=== PATIENT | female | born 1980 | race Caucasian/White ===

== ENCOUNTER 2016-04-19 10:31 | Day surgery (SDC) | payer OTHER ==
[~2016-04-19 10:31] MED LIST: CEFAZOLIN 2 GM/D5W RTU 2 GM/50 ML RTUPB IV PRN
[2016-04-19] MEDS ORDERED: LIDOCAINE 2% INJ-PF (20 MG/ML) 10 ML AMPUL ONE (11:00)
[2016-04-19] MEDS ORDERED: ONDANSETRON HCL INJ/PF 4 MG/2 ML SDV ONE (11:00)
[2016-04-19] MEDS ORDERED: SUCCINYLCHOLINE CHLORIDE INJ 200 MG/10 ML VIAL ONE (11:00)
[2016-04-19] MEDS ORDERED: METOCLOPRAMIDE HCL INJ/PF 10 MG/2 ML SDV ONE (11:00)
[2016-04-19] MEDS ORDERED: ROCURONIUM BROMIDE INJ 50 MG/5 ML VIAL IV ONE (11:00)
[2016-04-19] MEDS ORDERED: GLYCOPYRROLATE INJ 0.4 MG/2 ML VIAL ONE (11:00)
[2016-04-19] MEDS ORDERED: NEOSTIGMINE METHYLSULFATE 10 MG/10 ML VIAL ONE (11:00)
[2016-04-19 11:29] LABS: HEMATOCRIT 37.7 % (36.0-47.0); HGB HCT DIFFERENCE 1.3; MEAN CORPUSCULAR HEMOGLOBIN 29.1 pg (27.0-33.4); MEAN CORPUSCULAR HGB CONC 34.4 g/dL (32.0-36.0); MEAN CORPUSCULAR VOLUME 85 fl (80-97); RED BLOOD COUNT 4.45 10^6/uL (3.72-5.28); RED CELL DISTRIBUTION WIDTH 14.9 % (11.5-14.0); WHITE BLOOD COUNT 8.7 10^3/uL (4.0-10.5)
[2016-04-19 11:48] LABS: ANION GAP 9 (5-19); BLOOD UREA NITROGEN 9 mg/dL (7-20); CALCIUM 9.3 mg/dL (8.4-10.2); CARBON DIOXIDE 25 mmol/L (22-30); CHLORIDE 105 mmol/L (98-107); CREATININE RESULT 0.55 mg/dL (0.52-1.25); GLUCOSE 102 mg/dL (75-110); POTASSIUM 3.7 mmol/L (3.6-5.0); SODIUM 139.1 mmol/L (137-145)
[2016-04-19] MEDS ORDERED: HYDROMORPHONE HCL INJ/PF 2 MG/ML AMPULE IV ONE (12:30)
[2016-04-19] MEDS ORDERED: BUPIVACAINE HCL 0.5 % INJ/PF 30 ML SDV ONE (13:44)
[2016-04-19] MEDS ORDERED: FENTANYL CITRATE INJ/PF 100 MCG/2 ML AMPUL ONE (13:56)
[2016-04-19] MEDS ORDERED: PROPOFOL INJ 200 MG/20 ML VIAL IV ONE (13:57)
[2016-04-19] MEDS ORDERED: DEXMEDETOMIDINE INJ 80 MCG/20 ML VIAL IV ONE (13:57)
[2016-04-19] MEDS ORDERED: MORPHINE SULFATE 10 MG/ML INJ ONE ×2 (14:35→16:47)
[2016-04-19] MEDS ORDERED: ACETAMINOPHEN 0 ML IV ONE (14:35)
[2016-04-19] MEDS ORDERED: FENTANYL CITRATE INJ/PF 100 MCG/2 ML AMPUL IV PRN ×3 (16:18)
[2016-04-19] MEDS ORDERED: MEPERIDINE HCL/PF INJ 25 MG/1 ML DISP.SYRIN IV PRN (16:18)
[2016-04-19] MEDS ORDERED: PROMETHAZINE HCL INJ 25 MG/1 ML VIAL IV PRN ×2 (16:18)
[2016-04-19] MEDS ORDERED: OXYCODONE-ACETAMINOPHEN 5-325 MG TABLET PO PRN ×3 (16:18→17:36)
[2016-04-19] MEDS ORDERED: DIPHENHYDRAMINE HCL 50 MG/ML VIAL IV PRN (16:18)
[2016-04-19] MEDS ORDERED: MORPHINE SULFATE 10 MG/ML INJ IV PRN (16:18)
[2016-04-19] MEDS ORDERED: ACETAMINOPHEN 100 ML IV ONE (17:29)
--- NOTE | 2016-04-19 17:33 | Operative Report ---
Operative Report DATE OF SURGERY: 04/19/16 PREOPERATIVE DIAGNOSIS: Refracture Left Patella POSTOPERATIVE DIAGNOSIS: Same OPERATION: Revision ORIF Left Patella SURGEON: ADDY STANFORD ANESTHESIA: GA COMPLICATIONS: None ESTIMATED BLOOD LOSS: Minimal PROCEDURE: Indication for above procedure: 35-year-old female who sustained a patellar fracture back in January 2016. She had been doing better initially according to her who began having pain in the past month or so. She notes pain along the anterior aspect of the knee and sustaining a fall recently. Radiographs at the office today demonstrated refracture of the patella. At that point we discussed treatment options including nonoperative treatment versus operative intervention. Risks and benefits were explained patient verbalized understanding consented for the procedure. Patient's preoperative hCG was positive and we discussed the complications of general anesthesia in this situation but given her refracture the decision was made to proceed with operative treatment knowing the risks. Procedure In Detail: Patient was seen and evaluated in the preoperative holding area. The LEFT lower extremity was initialized and marked. Patient received 2g of Ancef IV for bacterial prophylaxis. Patient was taken back to the operative room where transferred to the operative table and placed under general anesthesia. Once they were adequately anesthetized a nonsterile tourniquet was placed on the lower extremity. A surgical team debriefing was performed ensuring all instrumentation was available, the surgical procedure was discussed with possible concerns reviewed. The upper extremity was prepped with chloraprep and draped in a sterile fashion. A timeout was done identifying correct patient, procedure and extremity everyone in attendance agree with this and verbalized no concerns. The extremity was exsanguinated the tourniquet was inflated to 300 mmHg. Patient's previous skin incision was utilized longitudinally. Dissection was done through the fascia approaching the capsule of the knee. A mid vastus approach was then utilized to inspect the articular surface. There was some mild diastases of the articular surface however gross instability of the fracture was not appreciated. There was fibrous tissue along the anterior aspect of the knee. Given the diastases and patient's pain the decision was made to proceed with takedown of partial union and revise the articular diastases. Utilizing a osteotome the fracture site was opened. A rongeur was used to freshen the fracture ends proximally and distally until good bleeding bone was visualized. There was some mild comminution along the lateral aspect of the articular surface of the patella which was removed. Under direct visualization and with palpable cues to anatomically reduce the articular surface there was no palpable evidence of step-off. C-arm fluoroscopy demonstrated acceptable reduction however there was evidence of step-off likely at the level of the lateral comminution. But given the fact I had excellent articular reduction on direct visualization and palpation I felt reduction was acceptable after multiple attempts to achieve anatomic fluoroscopic reduction. The reduction was held with a large tenaculum. 0.62 K wires were laced perpendicular to the fracture. I then used 18-gauge wire and placed it in a [id number] type fashion. It was passed below the wires proximally and distally with a Angiocath needle. I then tensioned my [id number]-at-[id number] construct until I got optimal compression. The K wires were then bent proximally to secure the wire and then tamped. The wire ends were then cut at the level of the patellar tendon to avoid postoperative irritation. Knee range of motion was 0/60 without diastases. Final C-arm fluoroscopy was obtained demonstrating acceptable alignment of the patella with adequate fixation. The wound was then copiously irrigated with normal saline. The capsule was closed with interrupted 0 Vicryl suture. Subcutaneous tissues were closed with 2-0 Vicryl suture. Skin was closed with ashtyn. 30 mL of 0.5% Marcaine without epinephrine was injected for postoperative pain control. Wound was dressed with OpSite, soft roll and Ramírez bandage. Patient was placed in her knee immobilizer. Postoperative plan: Patient may be partial weightbearing with crutches in the knee immobilizer when not begin knee range of motion until 4 weeks postoperatively. I stressed the importance of tobacco cessation and its negative effects on bone healing and overall health. Patient will be started on enteric-coated aspirin 325 mg daily for deep.
[2016-04-19] MEDS: FENTANYL CITRATE INJ/PF 100 MCG/2 ML AMPUL ONE ×2 (17:35→17:40)
[2016-04-19] MEDS ORDERED: ONDANSETRON HCL INJ/PF 4 MG/2 ML SDV IV PRN (17:36)
[2016-04-19] MEDS ORDERED: HYDROMORPHONE HCL INJ/PF 2 MG/ML AMPULE IV PRN (17:36)
[2016-04-19] MEDS ORDERED: HYDROMORPHONE HCL INJ/PF 2 MG/ML AMPULE ONE (17:40)
[2016-04-19] MEDS ORDERED: OXYCODONE-ACETAMINOPHEN 5-325 MG TABLET ONE (18:21)
[2016-04-19 19:37] VITALS: BP 120/80
== END 2016-04-19 19:30 | disposition home or self-care (01) ==
LOC: OROUT 10:31
PROVIDERS: ATTEND Orthopaedic Surgery
PROC: 0QSF04Z Reposition Left Patella with Internal Fixation Device, Open Approach (ICD-10-PCS; principal; 2016-04-19 13:00)
DX: S82.001K Unspecified fracture of right patella, subsequent encounter for closed fracture with nonunion (principal); W19.XXXD Unspecified fall, subsequent encounter; Z91.81 History of falling; M25.562 Pain in left knee; F17.210 Nicotine dependence, cigarettes, uncomplicated; Z88.6 Allergy status to analgesic agent
CPT/HCPCS: 36415; 85027; 81025; 80048; 73560; 27524; J3490 ×3; J3010; J2765; J2270; J1170; J0330; J2405; J2704; J0690; J0131; 01392

== ENCOUNTER → 2016-05-11 | Outpatient (CLI) | payer OTHER | LOC: SP 15:37 | PROVIDERS: ATTEND Orthopaedic Surgery | DX: M25.562 Pain in left knee (principal) | CPT/HCPCS: 93971 ==

== ENCOUNTER 2016-05-26 14:48 | Emergency (ER) | payer OTHER ==
[2016-05-26 15:24] VITALS: BP 133/88
--- NOTE | 2016-05-26 15:46 | ER Document Report ---
ED Medical Screen (RME) - General Chief Complaint: OB Trauma Stated Complaint: ABDOMINAL PAIN/NAUSEA/CHILLS Notes: 35-year-old female comes emergency room complaining of abdominal pain, hurting all over. With strong for methadone. Has been taking 140 mg a day, last dose was Monday 5 days ago. Had an hCG level 239 on 03/09/2016. She has been receiving her methadone from a clinic in [place]. I have greeted and performed a rapid initial assessment of this patient. A comprehensive ED assessment and evaluation of the patient, analysis of test results and completion of the medical decision making process will be conducted by additional ED providers. TRAVEL OUTSIDE OF THE [place] IN LAST 30 DAYS: No - Related Data Allergies/Adverse Reactions: ibuprofen [From Motrin] Allergy (Verified 05/26/16 15:40) NSAIDS (Non-Steroidal Anti-Inflamma [Nsaids] Allergy (Verified 05/26/16 15:40) aspirin [Aspirin] Adverse Reaction (Verified 05/26/16 15:40) Past Medical History - Past Medical History Cardiac Medical History: Denies: Hx Coronary Artery Disease, Hx Heart Attack, Hx Hypertension Pulmonary Medical History: Denies: Hx Asthma, Hx Bronchitis, Hx COPD, Hx Pneumonia Neurological Medical History: Denies: Hx Cerebrovascular Accident, Hx Seizures Renal/ Medical History: Denies: Hx Peritoneal Dialysis Musculoskeltal Medical History: Reports Hx Arthritis, Reports Hx Fibromyalgia, Reports Hx Musculoskeletal Trauma - Patella fracture Psychiatric Medical History: Reports: Hx Anxiety, Hx Bipolar Disorder, Hx Depression, Hx Post Traumatic Stress Disorder Traumatic Medical History: Reports: Hx Fractures - Patella left Past Surgical History: Reports: Hx Section, Hx Genitourinary Surgery - Urethral stretching - Immunizations Immunizations up to date: No Hx Diphtheria, Pertussis, Tetanus Vaccination: Yes Physical Exam - Vital signs Vitals: Temp Pulse Resp BP Pulse Ox 98.4 F 76 20 133/88 H 100 05/26/16 15:18 05/26/16 15:18 05/26/16 15:18 05/26/16 15:18 05/26/16 15:18 Course - Vital Signs Vital signs: Temp Pulse Resp BP Pulse Ox 98.4 F 76 20 133/88 H 100 05/26/16 15:18 05/26/16 15:18 05/26/16 15:18 05/26/16 15:18 05/26/16 15:18
[2016-05-26 16:21] LABS: ABSOLUTE EOSINOPHILS # (AUTO) 0.1 10^3/uL (0.0-0.6); ABSOLUTE LYMPHOCYTES (AUTO) 3.4 10^3/uL (0.5-4.7); ABSOLUTE MONOCYTES (AUTO) 0.5 10^3/uL (0.1-1.4); ABSOLUTE NEUT (AUTO) 3.6 10^3/uL (1.7-8.2); BASOPHILS % (AUTO) 0.6 % (0-2); EOSINOPHILS % (AUTO) 0.9 % (0-6); HEMATOCRIT 39.3 % (36.0-47.0); HEMOGLOBIN 13.7 g/dL (12.0-15.5); HGB HCT DIFFERENCE 1.8; LYMPHOCYTES % (AUTO) 44.7 % (13-45); MEAN CORPUSCULAR HEMOGLOBIN 28.7 pg (27.0-33.4); MEAN CORPUSCULAR HGB CONC 34.8 g/dL (32.0-36.0); MEAN CORPUSCULAR VOLUME 82 fl (80-97); MONOCYTES % (AUTO) 6.6 % (3-13); RED BLOOD COUNT 4.78 10^6/uL (3.72-5.28); RED CELL DISTRIBUTION WIDTH 15.8 % (11.5-14.0); SEGMENTED NEUTROPHILS % (AUTO) 47.2 % (42-78); WHITE BLOOD COUNT 7.7 10^3/uL (4.0-10.5)
[2016-05-26 16:25] LABS: APPEARANCE,URINE CLEAR; BILIRUBIN,URINE NEGATIVE (NEGATIVE); GLUCOSE, URINE NEGATIVE (NEGATIVE); KETONES,URINE NEGATIVE (NEGATIVE); LEUKOCYTE ESTERASE,URINE NEGATIVE (NEGATIVE); NITRITE,URINE NEGATIVE (NEGATIVE); PROTEIN,URINE NEGATIVE (NEGATIVE); URINE SPECIFIC GRAVITY 1.006; UROBILINOGEN,URINE NEGATIVE mg/dL (<2.0)
[2016-05-26 16:43] LABS: ALANINE AMINOTRANSFERASE 20 U/L (9-52); ALBUMIN 4.6 g/dL (3.5-5.0); ALKALINE PHOSPHATASE 89 U/L (38-126); ANION GAP 15 (5-19); ASPARTATE AMINO TRANSFERASE 29 U/L (14-36); BILIRUBIN,DIRECT 0.4 mg/dL (0.0-0.4); BILIRUBIN,TOTAL 0.5 mg/dL (0.2-1.3); BLOOD UREA NITROGEN 7 mg/dL (7-20); CALCIUM 9.8 mg/dL (8.4-10.2); CARBON DIOXIDE 26 mmol/L (22-30); CHLORIDE 103 mmol/L (98-107); GLUCOSE 89 mg/dL (75-110); POTASSIUM 4.4 mmol/L (3.6-5.0); SODIUM 143.6 mmol/L (137-145); TOTAL PROTEIN 8.4 g/dL (6.3-8.2)
--- NOTE | 2016-05-26 18:23 | ER Document Report ---
ED General - General Chief Complaint: OB Trauma Stated Complaint: ABDOMINAL PAIN/NAUSEA/CHILLS Time seen by provider: 18:18 Mode of Arrival: Ambulatory Information source: Patient TRAVEL OUTSIDE OF THE [place] IN LAST 30 DAYS: No - Related Data Allergies/Adverse Reactions: ibuprofen [From Motrin] Allergy (Verified 05/26/16 15:40) NSAIDS (Non-Steroidal Anti-Inflamma [Nsaids] Allergy (Verified 05/26/16 15:40) aspirin [Aspirin] Adverse Reaction (Verified 05/26/16 15:40) Past Medical History - Social History Smoking Status: Current Every Day Smoker Chew tobacco use (# tins/day): No Frequency of alcohol use: None Drug Abuse: Marijuana Family History: Arthritis, Malignancy, COPD, CVA, Hypertension, Reviewed & Not Pertinent Patient has suicidal ideation: No Patient has homicidal ideation: No - Past Medical History Cardiac Medical History: Denies: Hx Coronary Artery Disease, Hx Heart Attack, Hx Hypertension Pulmonary Medical History: Denies: Hx Asthma, Hx Bronchitis, Hx COPD, Hx Pneumonia Neurological Medical History: Denies: Hx Cerebrovascular Accident, Hx Seizures Renal/ Medical History: Denies: Hx Peritoneal Dialysis Musculoskeltal Medical History: Reports Hx Arthritis, Reports Hx Fibromyalgia, Reports Hx Musculoskeletal Trauma - Patella fracture Psychiatric Medical History: Reports: Hx Anxiety, Hx Bipolar Disorder, Hx Depression, Hx Post Traumatic Stress Disorder Traumatic Medical History: Reports: Hx Fractures - Patella left Past Surgical History: Reports: Hx Section, Hx Genitourinary Surgery - Urethral stretching, Hx Orthopedic Surgery - L knee x2 - Immunizations Immunizations up to date: No Hx Diphtheria, Pertussis, Tetanus Vaccination: Yes Physical Exam - Vital signs Vitals: Temp Pulse Resp BP Pulse Ox 98.4 F 76 20 133/88 H 100 05/26/16 15:18 05/26/16 15:18 05/26/16 15:18 05/26/16 15:18 05/26/16 15:18 Course - Re-evaluation Re-evalutation: 05/26/16 18:29 Discussed labs with patient discussed the chronic pain policy with patient explained that I cannot give her narcotics for her withdrawal from methadone. Patient had a knee surgery a month ago I explained to her that I could not give her narcotics for a surgery a month ago. A copy of her lab reports given to patient and a prescription for Phenergan given to the patient. - Vital Signs Vital signs: Temp Pulse Resp BP Pulse Ox 98.4 F 76 20 133/88 H 100 05/26/16 15:18 05/26/16 15:18 05/26/16 15:18 05/26/16 15:18 05/26/16 15:18 - Laboratory Result Diagrams: 05/26/16 16:03 05/26/16 16:03 Laboratory results interpreted by me: 05/26/16 05/26/16 05/26/16 16:03 16:03 16:03 RDW 15.8 H Total Protein 8.4 H Urine Blood MODERATE H Discharge - Discharge Clinical Impression: Abdominal pain Qualifiers: Abdominal location: generalized Qualified Code(s): R10.84 - Generalized abdominal pain Nausea & vomiting Qualifiers: Vomiting type: unspecified Vomiting Intractability: non-intractable Qualified Code(s): R11.2 - Nausea with vomiting, unspecified Condition: Stable Disposition: HOME, SELF-CARE Instructions: Family Physicians / Practices Additional Instructions: ABDOMINAL PAIN: There are many causes of abdominal pain. Pain can mean a serious problem requiring surgery (such as appendicitis). It can also be an innocent problem that goes away on its own (such as a viral infection). Often, time must pass to determine the cause of pain. The physician does not feel that hospitalization is necessary, at present. Things may change within the next 24 hours. Call the doctor or come back for re- examination if any problems occur, such as: (1) Pain that becomes more severe, steady, or becomes concentrated in one specific area. Also, pain that is more severe with movement or coughing. (2) Vomiting that persists or becomes more frequent. (3) Blood in the vomitus, urine, or bowel movements. Blood in the stool may have a tarry or black appearance. (4) Shaking chills or fever greater than 100 degrees F. (5) The abdomen becomes more distended or swollen. (6) Bowel movements cease. (7) Failure to improve as expected. VOMITING: Vomiting (or nausea without vomiting) can be caused by many other different problems. It can mean that something's wrong with the stomach, such as ulcers or inflammation or the intestinal tract, such as appendicitis. But it can also be a symptom of a problem that has nothing to do with the stomach or intestines. Vomiting is common with severe headaches, earaches, tonsillitis, and kidney infections, etc. We see it with pneumonia or heart attacks. Drugs can cause nausea and vomiting. Many abdominal problems cause vomiting; for example, gallstones, kidney stones, pancreatitis, and intestinal obstruction ( blocked bowels). In most cases, curing the vomiting depends on fixing the problem that caused it. For temporary relief, we may use an anti-nausea medicine. For home use, we can prescribe suppositories, chewable pills, pills that dissolve in the mouth, or liquid anti-nausea drugs. If the vomiting seems to be caused by a problem in the stomach, acid-suppressing drugs may be prescribed as well. It's important to avoid dehydration. Sip small amounts of clear liquids ( soft drinks, tea, broth, etc) . Try to take fluids frequently even if you are vomiting to prevent dehydration. Take increasing amounts of fluid and when liquids are being consumed successfully, advance to small amounts of bland food (toast, soups, mashed potatoes, etc.) until you are able to resume a regular diet. Avoid aspirin, tobacco, and alcohol. If the vomiting worsens, if the problem that's making you vomit worsens, or if there's evidence of bleeding in the stomach (such as black, tarry stool, or bloody or black vomit), you should return immediately. Also, return if abdominal pain worsens or becomes localized to one area or you develop high fever. Call your doctor if you aren't improved in 24 hours. ANTINAUSEA MEDICATION: You have been given a medication to suppress nausea and vomiting. This type of medication can be given as a shot, pill, or suppository. It will usually last for many hours. Pills and shots usually last six to eight hours. For the typical illness, only one or two doses of the medication may be necessary. Mild lightheadedness may occur. This type of medicine can cause drowsiness. Do not drive or operate dangerous machinery while under its influence. Do not mix with alcohol. See your doctor at once if you have muscle spasms or tightness, or uncontrollable motions (particularly of the neck, mouth, or jaw). Persistent vomiting or severe lightheadedness should also be evaluated by the physician. FOLLOW-UP CARE: If you have been referred to a physician for follow-up care, call the physician s office for an appointment as you were instructed or within the next two days. If you experience worsening or a significant change in your symptoms, notify the physician immediately or return to the Emergency Department at any time for re-evaluation. Prescriptions: Promethazine HCl [Phenergan 25 mg Tablet] 25 mg PO Q6H PRN #15 tablet PRN Reason: Forms: Elevated Blood Pressure, Smoking Cessation Education
== END 2016-05-26 18:31 | disposition home or self-care (01) ==
LOC: ER 14:48
DX: F11.23 Opioid dependence with withdrawal (principal); R10.84 Generalized abdominal pain; R11.2 Nausea with vomiting, unspecified; T40.2X5A Adverse effect of other opioids, initial encounter; F17.200 Nicotine dependence, unspecified, uncomplicated; Z88.6 Allergy status to analgesic agent; Z88.8 Allergy status to other drugs, medicaments and biological substances; Z98.890 Other specified postprocedural states
CPT/HCPCS: 36415; 76817; 80053; 81001; 84702; 85025; 99284

== ENCOUNTER 2016-07-19 14:00 | Day surgery (SDC) | payer MEDICAID, OTHER ==
[2016-06-30 11:02] LABS: ABSOLUTE BASOPHILS # (AUTO) 0.1 10^3/uL (0.0-0.2); ABSOLUTE EOSINOPHILS # (AUTO) 0.1 10^3/uL (0.0-0.6); ABSOLUTE MONOCYTES (AUTO) 0.8 10^3/uL (0.1-1.4); ABSOLUTE NEUT (AUTO) 10.8 10^3/uL (1.7-8.2); BASOPHILS % (AUTO) 0.6 % (0-2); EOSINOPHILS % (AUTO) 0.8 % (0-6); HEMOGLOBIN 13.3 g/dL (12.0-15.5); HGB HCT DIFFERENCE -0.1; LYMPHOCYTES % (AUTO) 29.6 % (13-45); MEAN CORPUSCULAR HEMOGLOBIN 28.3 pg (27.0-33.4); MEAN CORPUSCULAR HGB CONC 33.4 g/dL (32.0-36.0); MEAN CORPUSCULAR VOLUME 85 fl (80-97); MONOCYTES % (AUTO) 4.6 % (3-13); RED BLOOD COUNT 4.71 10^6/uL (3.72-5.28); RED CELL DISTRIBUTION WIDTH 17.5 % (11.5-14.0); SEGMENTED NEUTROPHILS % (AUTO) 64.4 % (42-78); WHITE BLOOD COUNT 16.8 10^3/uL (4.0-10.5)
[2016-06-30 11:09] LABS: APPEARANCE,URINE CLEAR; BILIRUBIN,URINE NEGATIVE (NEGATIVE); GLUCOSE, URINE NEGATIVE (NEGATIVE); KETONES,URINE NEGATIVE (NEGATIVE); LEUKOCYTE ESTERASE,URINE NEGATIVE (NEGATIVE); NITRITE,URINE NEGATIVE (NEGATIVE); PROTEIN,URINE NEGATIVE (NEGATIVE); URINE SPECIFIC GRAVITY 1.019; UROBILINOGEN,URINE NEGATIVE mg/dL (<2.0)
[2016-06-30 11:33] LABS: ANION GAP 10 (5-19); BLOOD UREA NITROGEN 14 mg/dL (7-20); CALCIUM 9.6 mg/dL (8.4-10.2); CARBON DIOXIDE 22 mmol/L (22-30); CHLORIDE 105 mmol/L (98-107); CREATININE RESULT 0.76 mg/dL (0.52-1.25); GLUCOSE 80 mg/dL (75-110); POTASSIUM 4.4 mmol/L (3.6-5.0); SODIUM 137.2 mmol/L (137-145)
--- NOTE | 2016-06-30 11:42 | RADIOLOGY REPORT (SQ) ---
EXAM DESCRIPTION: CHEST PA/LATERAL COMPLETED DATE/TIME: 06/30/2016 10:39 am REASON FOR STUDY: PRE OP COMPARISON: 05/21/2015 EXAM PARAMETERS: NUMBER OF VIEWS: two views TECHNIQUE: Digital Frontal and Lateral radiographic views of the chest acquired. RADIATION DOSE: NA LIMITATIONS: none FINDINGS: LUNGS AND PLEURA: No opacities, masses or pneumothorax. No pleural effusion. MEDIASTINUM AND HILAR STRUCTURES: No masses or contour abnormalities. HEART AND VASCULAR STRUCTURES: Heart normal size. No evidence for failure. BONES: No acute findings. HARDWARE: None in the chest. OTHER: No other significant finding. IMPRESSION: NO SIGNIFICANT RADIOGRAPHIC FINDING IN THE CHEST. TECHNICAL DOCUMENTATION: JOB ID: [id number] [employer]- All Rights Reserved
--- NOTE | 2016-06-30 18:42 | EKG REPORT ---
SEVERITY:- NORMAL ECG - SINUS RHYTHM : Confirmed by: Gary Dean MD 30-Jun-2016 18:41:07
[~2016-07-19 14:00] MED LIST changes: +BUPIVACAINE HCL 0.5 % INJ/PF 30 ML SDV ONE; +DEXAMETHASONE SOD PHOSPHATE INJ 4 MG/1 ML VIAL ONE; +GLYCOPYRROLATE INJ 0.4 MG/2 ML VIAL ONE; +LACTATED RINGERS 1000 ML IV PRN; +LIDOCAINE 0.5% INJ-PF (5 MG/ML) 50 ML SDV SUBCUT PRN; +LIDOCAINE 2% INJ-PF (20 MG/ML) 10 ML AMPUL ONE; +METOCLOPRAMIDE HCL INJ/PF 10 MG/2 ML SDV ONE; +NEOSTIGMINE METHYLSULFATE 10 MG/10 ML VIAL ONE; +ONDANSETRON HCL INJ/PF 4 MG/2 ML SDV ONE; +ROCURONIUM BROMIDE INJ 50 MG/5 ML VIAL IV ONE; +SUCCINYLCHOLINE CHLORIDE INJ 200 MG/10 ML VIAL ONE
[2016-07-19] MEDS ORDERED: BUPIVACAINE HCL 0.5 % INJ/PF 30 ML SDV ONE (14:45)
[2016-07-19] MEDS ORDERED: FENTANYL CITRATE INJ/PF 250 MCG/5 ML AMPULE ONE ×2 (15:09)
[2016-07-19] MEDS ORDERED: MIDAZOLAM 2 MG/2 ML INJ ONE (15:10)
[2016-07-19] MEDS ORDERED: PROPOFOL INJ 200 MG/20 ML VIAL IV ONE ×2 (15:10→15:12)
[2016-07-19] MEDS ORDERED: ACETAMINOPHEN 100 ML IV ONE (15:10)
[2016-07-19] MEDS ORDERED: MORPHINE SULFATE 10 MG/ML INJ ONE ×2 (15:11→17:24)
--- NOTE | 2016-07-19 15:43 | Progress Note ---
Provider Note Provider Note: Patient's hcG came back positive. We discussed the fact that she is and she is a high risk for termination of the when placed under general anesthesia. Patient understands these risks and given her fracture that is essentially making her nonambulatory and thus it is more urgent and likely cannot wait full-term . Patient verbalized understanding of surgical risk and risk.
[2016-07-19] MEDS ORDERED: OXYCODONE-ACETAMINOPHEN 5-325 MG TABLET PO PRN ×3 (16:30→18:05)
[2016-07-19] MEDS ORDERED: DIPHENHYDRAMINE HCL 50 MG/ML VIAL IV PRN (16:30)
[2016-07-19] MEDS ORDERED: MORPHINE SULFATE 10 MG/ML INJ IV PRN (16:30)
[2016-07-19] MEDS ORDERED: MEPERIDINE HCL/PF INJ 25 MG/1 ML DISP.SYRIN IV PRN (16:30)
[2016-07-19] MEDS ORDERED: FENTANYL CITRATE INJ/PF 100 MCG/2 ML AMPUL IV PRN ×3 (16:30)
[2016-07-19] MEDS ORDERED: PROMETHAZINE HCL INJ 25 MG/1 ML VIAL IV PRN ×2 (16:30)
[2016-07-19] MEDS ORDERED: HYDROMORPHONE HCL INJ/PF 2 MG/ML AMPULE IV PRN (18:05)
[2016-07-19] MEDS ORDERED: ONDANSETRON HCL INJ/PF 4 MG/2 ML SDV IV PRN (18:05)
--- NOTE | 2016-07-19 18:08 | PDOC DISCHARGE SUMMARY ---
Discharge Summary (SDC) - Discharge Final Diagnosis: Left Patella Fracture Date of Surgery: 07/19/16 Discharge Date: 07/19/16 Condition: Good Treatment or Instructions: Schedule Follow Up w/ Dr. Ki Carreon @ [facility] to be seen in 10-14 days or as scheduled [place]: [place]: [place]: Keep cast clean/dry/intact. Aggressive elevation Nonweightbearing Stool softener of choice when on pain medication. Prescriptions: Oxycodone HCl/Acetaminophen [Percocet 5-325 mg Tablet] 1 - 2 tab PO ASDIR PRN # 45 tablet PRN Reason: Discharge Diet: As Tolerated Respiratory Treatments at Home: Deep Breathing/Coughing Discharge Activity: No Lifting Over 10 Pounds, No Lifting/Push/Pulling Report the Following to Your Physician Immediately: Fever over 101 Degrees, Unusual Bleeding, Redness, Swelling, Warmth, Increased Soreness
--- NOTE | 2016-07-19 18:16 | Operative Report ---
Operative Report DATE OF SURGERY: 07/19/16 PREOPERATIVE DIAGNOSIS: Left Patella Fracture POSTOPERATIVE DIAGNOSIS: Same OPERATION: Revision ORIF Left Patella SURGEON: ADDY STANFROD ANESTHESIA: GA COMPLICATIONS: None ESTIMATED BLOOD LOSS: Minimal PROCEDURE: Indication for above procedure: 35-year-old female who sustained a patellar fracture back in January. She underwent open reduction internal fixation subsequently after this she sustained a reinjury and underwent revision ORIF. Unfortunately patient once again injured her left knee exact cause of the injury is unknown concerned secondary to her tremors that occur at night. We had discussed treatment options including operative versus nonoperative intervention. Patient understands since this is the third open reduction internal fixation is at high risk for refracture, infection and failure of hardware. If his third and final attempted fixation is not successful patient is looking at possible inferior pole resection versus patellectomy. Patient has verbalized understanding consented for the procedure. Procedure In Detail: Patient was seen and evaluated in the preoperative holding area. The left lower extremity was initialized and marked. Patient received 2g of Ancef IV for bacterial prophylaxis. Patient was taken back to the operative room where transferred to the operative table and placed under general anesthesia. Once they were adequately anesthetized a nonsterile tourniquet was placed on the lower extremity. A surgical team debriefing was performed ensuring all instrumentation was available, the surgical procedure was discussed with possible concerns reviewed. The lower extremity was prepped with ChloraPrep and draped in a sterile fashion. A timeout was done identifying correct patient, procedure and extremity everyone in attendance agree with this and verbalized no concerns. The extremity was exsanguinated the tourniquet was inflated to 300 mmHg. Previous longitudinal skin incision was sharp dissection was performed down to the patella. I was then able to isolate the fracture there is significant fibrous union of the fracture but no evidence of bone healing. The previous hardware was then removed. Utilizing a medial parapatellar approach I was able to directly visualize the articular surface. There is no evidence of chondral damage along the femoral trochlea. I then proceeded with preparation of the patella fracture ends. Prior to fixation I had to do significant debridement of the fibrous tissue down to good cancellus bone. I then freshened the edges of the articular surface of the superior patella to match the inferior patella. However given the amount of bone loss from her previous injuries there was a small defect was dilated with filled with autograft. I then reduced the fracture at the articular surface with an acceptable reduction. The reduction on C-arm however do not completely match the reduction on radiographs given patient had no evidence of articular step-off or diastases under direct visualization. This was then clamped to provide further compression. 2 threaded K wires were placed perpendicular to the fracture and two 4.0 partially threaded cannulated cancellus screws were placed providing good interfragmentary compression. 18- gauge wire was then fed to the cannulation forming a [id number]-av-osqrs construct. This was tightened along the superior lateral pole of the patella once again maintaining my interfragmentary compression. The wire was then cut and bent to avoid postoperative irritation and the clamp removed. This maintained my articular surface reduction there is no evidence of diastases of the fracture at the articular surface there was diastases along the anterior aspect which was filled with autograft that was obtained while freshening the edge of the superior and inferior poles. I then provided further fixation with a #5 FiberWire and a cerclage type fashion around the patella. A peripheral vasculature was coagulated with electrocautery. The wound was then copiously irrigated with normal saline. My medial parapatellar arthrotomy was closed with interrupted 0 Vicryl suture. Soft tissue was closed over the 18-gauge wire to avoid postoperative irritation. Wound was once again irrigated with saline. Subcutaneous tissues were closed with interrupted 2-0 Vicryl suture. Skin was closed with ashtyn. 30 cc of 0.5 % Marcaine without epinephrine was injected for postoperative pain control. Wound was dressed with Xeroform 4 x 4's and cast padding and tourniquet was deflated. There was minimal swelling or bleeding. Patient was then placed in a well-padded long leg cast with the knee in 20 of flexion. Extra padding was placed to allow for postoperative swelling. Sponge counts, instrument counts, needle counts counts were correct. Patient was then awoken from anesthesia. Transferred from the operating room table to the operating room stretcher. There was no intraoperative complications patient tolerated procedure well stable to PACU. Postoperative plan: Patient will follow in the office in 2 weeks. At that point we will obtain radiographs in the cast and consider continuing the cast for 4 weeks as long as there is no sign or symptoms of infection.
[2016-07-19] MEDS: FENTANYL CITRATE INJ/PF 100 MCG/2 ML AMPUL ONE ×2 (18:30→18:36)
--- NOTE | 2016-07-19 19:24 | RADIOLOGY REPORT (SQ) ---
EXAM DESCRIPTION: NO CHG FLUORO COMPLETE DATE/TIME: 07/19/2016 7:09 pm REASON FOR STUDY: ORIF LT PATELLA S82.001K UNSP FRACTURE OF RIGHT PATELLA, SUBS FOR CLOS FX W FINDINGS: Please see combined report for performance of procedure and radiologic supervision and int erpretation. IMPRESSION: Please see combined report for performance of procedure and radiologic supervision and i nterpretation.
--- NOTE | 2016-07-19 19:24 | RADIOLOGY REPORT (SQ) ---
EXAM DESCRIPTION: KNEE LEFT 2 VIEWS COMPLETED DATE/TIME: 07/19/2016 7:09 pm REASON FOR STUDY: ORIF LT PATELLA S82.001K UNSP FRACTURE OF RIGHT PATELLA, SUBS FOR CLOS FX W COMPARISON: None. FLUOROSCOPY TIME: 1.8 minutes 3 images saved to PACS. TECHNIQUE: Intra-operative images acquired during surgical procedure to evaluate progress. NUMBER OF IMAGES: 3 images LIMITATIONS: None. FINDINGS: Fluoroscopic images were obtained during internal fixation of a patellar fracture. IMPRESSION: IMAGE(S) OBTAINED DURING PROCEDURE. COMMENT: Quality ID [id number]: Final reports for procedures using fluoroscopy that document radiation exp osure indices, or exposure time and number of fluorographic images (if radiation exposure indices are not available) Please consult full operative report of the attending physician for description of the procedure. TECHNICAL DOCUMENTATION: JOB ID: [id number] [employer]- All Rights Reserved
[2016-07-19] MEDS ORDERED: OXYCODONE HCL SR 10 MG TABLET PO SCH (22:00)
[2016-07-19 22:07] VITALS: BP 111/62
== END 2016-07-19 22:53 | disposition home or self-care (01) ==
LOC: OROUT 14:00 → UNDOADMOB 19:33 → 2N 19:33 → OROUT 22:53 → UNDODISOB 22:53
PROVIDERS: ATTEND Orthopaedic Surgery
PROC: 0QSF04Z Reposition Left Patella with Internal Fixation Device, Open Approach (ICD-10-PCS; 2016-07-19)
PROC: 0QBF0ZZ Excision of Left Patella, Open Approach (ICD-10-PCS; principal; 2016-07-19 15:15)
DX: S82.002K Unspecified fracture of left patella, subsequent encounter for closed fracture with nonunion (principal); X58.XXXA Exposure to other specified factors, initial encounter; G25.2 Other specified forms of tremor; Z32.01 Encounter for pregnancy test, result positive; F17.210 Nicotine dependence, cigarettes, uncomplicated
CPT/HCPCS: 27524; 11044; 93005; 36415; 85025; 81025; 80048; 81001; 71020; 73560; 93010; C1769; J2250; J3490 ×2; J1100; J3010 ×2; J2765; J2270; J1170; J0330; J2405; J2704; J0690; J0131; 01392

== ENCOUNTER 2016-07-20 20:00 | Emergency (ER) | payer MEDICAID, OTHER ==
[2016-07-20 20:43] LABS: ABSOLUTE LYMPHOCYTES (AUTO) 4.7 10^3/uL (0.5-4.7); ABSOLUTE MONOCYTES (AUTO) 0.9 10^3/uL (0.1-1.4); ABSOLUTE NEUT (AUTO) 9.1 10^3/uL (1.7-8.2); BASOPHILS % (AUTO) 0.2 % (0-2); EOSINOPHILS % (AUTO) 0.2 % (0-6); HEMATOCRIT 37.4 % (36.0-47.0); HEMOGLOBIN 12.4 g/dL (12.0-15.5); HGB HCT DIFFERENCE -0.2; LYMPHOCYTES % (AUTO) 31.6 % (13-45); MEAN CORPUSCULAR HEMOGLOBIN 28.9 pg (27.0-33.4); MEAN CORPUSCULAR HGB CONC 33.2 g/dL (32.0-36.0); MEAN CORPUSCULAR VOLUME 87 fl (80-97); MONOCYTES % (AUTO) 6.1 % (3-13); RED BLOOD COUNT 4.29 10^6/uL (3.72-5.28); RED CELL DISTRIBUTION WIDTH 17.5 % (11.5-14.0); SEGMENTED NEUTROPHILS % (AUTO) 61.9 % (42-78); WHITE BLOOD COUNT 14.7 10^3/uL (4.0-10.5)
[2016-07-20] MEDS ORDERED: NORMAL SALINE 1000 ML 1,000 ML IV ONE (20:50)
[2016-07-20 20:52] LABS: VENOUS BLOOD BASE EXCESS 1.6 mmol/L; VENOUS BLOOD HCO3 24.9 mmol/L (20-32); VENOUS BLOOD PCO2 35.3 mmHg (35-63); VENOUS BLOOD PH 7.47 (7.30-7.42)
--- NOTE | 2016-07-20 20:59 | ER Document Report ---
ED General - General Chief Complaint: pain on inspiration Stated Complaint: PAINFUL BREATHING Time Seen by Provider: 07/20/16 20:23 Mode of Arrival: Medic Information source: Patient, [facility] Records Notes: This is a 35-year-old female who is postop day 1 status post revision of left patellar fracture. This was her third patella surgery. She was discharged last night. She states that she has had multiple symptoms today and has overall not felt well. She is concerned that her heart rate has been high (115 ) and she has had 2 episodes of vomiting today. She also reports a fever at home this morning of 101. She reports some shortness of breath earlier but currently denies any chest pain or shortness of breath. States that she found out yesterday just prior to her surgery that her test is positive. She opted to continue with the surgery despite the knowledge that general anesthesia posed great risk to the , because her symptoms had made her nonambulatory. TRAVEL OUTSIDE OF THE [place] IN LAST 30 DAYS: No - Related Data Allergies/Adverse Reactions: ibuprofen [From Motrin] Allergy (Verified 06/30/16 09:33) SHARP STOMACH PAIN NSAIDS (Non-Steroidal Anti-Inflamma [Nsaids] Allergy (Verified 06/30/16 09:33) aspirin [Aspirin] Adverse Reaction (Verified 06/30/16 09:33) SHARP STOMACH PAINS Past Medical History - General Information source: Patient, [facility] Records - Social History Smoking Status: Unknown if Ever Smoked Family History: Arthritis, Malignancy, COPD, CVA, Hypertension, Reviewed & Not Pertinent - Past Medical History Cardiac Medical History: Reports: Hx Hypertension Denies: Hx Coronary Artery Disease, Hx Heart Attack Pulmonary Medical History: Reports: Hx Bronchitis - EVERY COUPLE YEARS Denies: Hx Asthma, Hx COPD, Hx Pneumonia Neurological Medical History: Denies: Hx Cerebrovascular Accident, Hx Seizures Renal/ Medical History: Denies: Hx Peritoneal Dialysis Musculoskeltal Medical History: Reports Hx Arthritis - GENERALIZED ALL BODY, Reports Hx Fibromyalgia, Reports Hx Musculoskeletal Trauma - Patella fracture Psychiatric Medical History: Reports: Hx Anxiety, Hx Bipolar Disorder, Hx Depression, Hx Post Traumatic Stress Disorder Traumatic Medical History: Reports: Hx Fractures - Patella left Past Surgical History: Reports: Hx Section, Hx Genitourinary Surgery - Urethral stretching, Hx Orthopedic Surgery - L knee x2 - Immunizations Immunizations up to date: No Hx Diphtheria, Pertussis, Tetanus Vaccination: No Review of Systems - Review of Systems Constitutional: See HPI EENT: No symptoms reported Cardiovascular: See HPI Respiratory: See HPI Gastrointestinal: See HPI, Vomiting. denies: Abdominal pain Genitourinary: No symptoms reported Musculoskeletal: See HPI Skin: No symptoms reported Hematologic/Lymphatic: No symptoms reported Neurological/Psychological: No symptoms reported Physical Exam - Vital signs Vitals: Resp Pulse Ox 10 L 98 07/20/16 20:06 07/20/16 20:06 - General General appearance: Appears well In distress: None - HEENT Head: Normocephalic, Atraumatic Conjunctiva: Normal Cornea: Normal Pupils: PERRL Mucous membranes: Moist - Respiratory Respiratory status: No respiratory distress. No: Tachypnea Breath sounds: Normal. No: Productive cough, Rales, Rhonchi, Wheezing - Cardiovascular Rhythm: Regular, Tachycardia Heart sounds: Normal auscultation, S1 appreciated, S2 appreciated Murmur: No - Abdominal Inspection: Normal Distension: No distension Bowel sounds: Normal Tenderness: Nontender - Extremities Notes: LLE in long leg cast. Toes warm, pink, cap refill less than 3 seconds. No pain with movement of toes. - Neurological Neuro grossly intact: Yes Cognition: Normal Orientation: AAOx4 Course - Re-evaluation Re-evalutation: 07/20/16 23:20 Patient states that she is feeling better with IV fluids and she states that she thinks she was just dehydrated. She is asking for pain medication and states that she did not have the money to fill her pain prescription when she left the hospital yesterday. She states she has taken nothing for pain all day today. 07/21/16 00:11 Pt's tachycardia is resolved (HR 80's) after IV fluids and pain medication. No tachypnea, no hypoxia. I have a low clinical suspicion for PE at this point. Her potassium has been repleted and she is to call ortho clinic tomorrow for followup. Strict return precautions discussed. She is comfortable with this plan. 07/21/16 00:18 Pt states that she is afraid she may get an outbreak of genital herpes secondary to the amount of stress she's been under. Denies current lesions. Requests prescription for acyclovir to take in event of outbreak. - Vital Signs Vital signs: Temp Pulse Resp BP Pulse Ox 98.3 F 12 121/82 98 07/20/16 20:09 07/20/16 23:01 07/20/16 23:01 07/20/16 23:01 - Laboratory Result Diagrams: 07/20/16 20:30 07/20/16 23:50 Laboratory results interpreted by me: 07/20/16 07/20/16 07/20/16 20:30 20:30 20:30 WBC 14.7 H RDW 17.5 H Absolute Neutrophils 9.1 H VBG pH Potassium 2.7 L* Chloride BUN 5 L Glucose 111 H Serum HCG, Qual POSITIVE H Beta HCG, Quant Urine Blood 07/20/16 07/20/16 07/20/16 20:30 20:30 20:55 WBC RDW Absolute Neutrophils VBG pH 7.47 H Potassium Chloride BUN Glucose Serum HCG, Qual Beta HCG, Quant 3949.60 H Urine Blood SMALL H 07/20/16 23:50 WBC RDW Absolute Neutrophils VBG pH Potassium 3.5 L Chloride 109 H BUN 6 L Glucose Serum HCG, Qual Beta HCG, Quant Urine Blood 07/21/16 00:34 repeat potassium prior to d/c = 3.5 Discharge - Discharge Clinical Impression: Post-op pain, First trimester , Hypokalemia, Anxiety Condition: Stable Disposition: HOME, SELF-CARE Additional Instructions: You are . care is best started as early in as possible. If you're unsure about continuing this , you should discuss this with your physician or with vaccine key customer leader at [facility]. You should take only medications approved by your physician. Acetaminophen can safely be taken for minor pains. As a rule, medication for chronic conditions such as asthma or seizures can safely be continued. You should discuss with the physician every medicine you take. Any regular exercise program can be continued. Talk to your physician, however, before engaging in competitive or demanding sports. Alcohol, smoking, and "street drugs" are dangerous to your baby. Cocaine is especially dangerous. Don't use any illicit drugs! Hypokalemia You have an abnormally decreased level of serum potassium. Hypokalemia may cause weakness, fatigue, or heart rhythm abnormalities. Sometimes there are no symptoms at all. Usually, low serum potassium is due to taking diuretics ( water pills). It can also be due to excessive vomiting or diarrhea. If no obvious cause is evident, further evaluation will be necessary. Treatment is usually oral potassium supplements. Take these exactly as prescribed. You may also want to select foods which are naturally high in potassium -- fruits (such as bananas, cantaloupe, grapes, oranges, prunes, tomatoes), fresh vegetables (potatoes, spinach, beans, peas), orange or tomato juice, tomato pasta sauce, milk, fish (halibut, tuna, salmon, sandi) A follow-up blood test is usually performed to assure that the potassium is returning to normal. Call the physician if you suffer severe weakness, muscle twitching or cramping, palpitations (pounding or irregular heartbeat), or any other new or alarming symptoms. Dehydration Dehydration can result from vomiting or diarrhea, fever, or decreased intake of fluids. If severe, hospitalization and intravenous fluids may be required. Most cases are treated at home with fluids by mouth. For the next 24 hours, drink lots of clear fluids. In mild cases, this can be soda pop or sports drinks. For more severe dehydration, the doctor may recommend special fluids such as Pedialyte or Lytren. Try to get three liters ( 3 quarts) of fluid per day. If vomiting occurs, continue to drink the fluids frequently (every 15 to 20 minutes), but in small amounts (one or two ounces). Depending on the type of dehydration, the doctor may prescribe antinausea medicine or potassium replacements. Call the doctor or return for re-examination if you become progressively weak, vomit repeatedly, or have other new symptoms. As discussed, call orthopedic clinic to schedule followup in next 24-48 hours. Follow up with OB ([facility]) as prescribed. Take your pain medications as already prescribed. Return to the ER for fever or any worsening symptoms or concerns. Prescriptions: Acyclovir [Acyclovir 400 mg Tablet] 400 mg PO TID #15 tablet
[2016-07-20 21:07] LABS: ALANINE AMINOTRANSFERASE 14 U/L (9-52); ALBUMIN 3.8 g/dL (3.5-5.0); ALKALINE PHOSPHATASE 65 U/L (38-126); ANION GAP 10 (5-19); ASPARTATE AMINO TRANSFERASE 16 U/L (14-36); BILIRUBIN,DIRECT 0.3 mg/dL (0.0-0.4); BILIRUBIN,TOTAL 0.5 mg/dL (0.2-1.3); BLOOD UREA NITROGEN 5 mg/dL (7-20); CARBON DIOXIDE 22 mmol/L (22-30); CHLORIDE 106 mmol/L (98-107); CREATININE RESULT 0.64 mg/dL (0.52-1.25); GLUCOSE 111 mg/dL (75-110); SODIUM 138.4 mmol/L (137-145); TOTAL PROTEIN 6.8 g/dL (6.3-8.2)
--- NOTE | 2016-07-20 21:07 | RADIOLOGY REPORT (SQ) ---
EXAM DESCRIPTION: CHEST SINGLE VIEW COMPLETED DATE/TIME: 07/20/2016 8:55 pm REASON FOR STUDY: shortness of breath COMPARISON: 06/30/2016 EXAM PARAMETERS: NUMBER OF VIEWS: One view. TECHNIQUE: Single frontal radiographic view of the chest acquired. RADIATION DOSE: NA LIMITATIONS: None. FINDINGS: LUNGS AND PLEURA: No opacities, masses or pneumothorax. No pleural effusion. MEDIASTINUM AND HILAR STRUCTURES: No masses. Contour normal. HEART AND VASCULAR STRUCTURES: Heart normal in size. Normal vasculature. BONES: No acute findings. HARDWARE: None in the chest. OTHER: No other significant finding. IMPRESSION: NO ACUTE RADIOGRAPHIC FINDING IN THE CHEST. TECHNICAL DOCUMENTATION: JOB ID: [id number]
[2016-07-20 21:09] LABS: POTASSIUM 2.7 mmol/L (3.6-5.0)
[2016-07-20 21:17] LABS: APPEARANCE,URINE CLEAR; BILIRUBIN,URINE NEGATIVE (NEGATIVE); GLUCOSE, URINE NEGATIVE (NEGATIVE); KETONES,URINE NEGATIVE (NEGATIVE); LEUKOCYTE ESTERASE,URINE NEGATIVE (NEGATIVE); NITRITE,URINE NEGATIVE (NEGATIVE); PROTEIN,URINE NEGATIVE (NEGATIVE); URINE SPECIFIC GRAVITY 1.004; UROBILINOGEN,URINE NEGATIVE mg/dL (<2.0)
[2016-07-20] MEDS ORDERED: POTASSI CL 20 MEQ/50 ML RIDER 50 ML IV ONE (21:42)
[2016-07-20] MEDS ORDERED: POTASSIUM CHLORIDE 20 MEQ/15 ML UDCUP PO ONE (21:48)
[2016-07-20] MEDS ORDERED: OXYCODONE-ACETAMINOPHEN 5-325 MG TABLET PO ONE (23:00)
[2016-07-20] MEDS ORDERED: RINGERS SOLUTION,LACTATED 1,000 ML IV ONE (23:02)
[2016-07-21] MEDS ORDERED: DIPHENHYDRAMINE HCL 25 MG CAPSULE PO ONE (00:13)
[2016-07-21] MEDS ORDERED: HYDROCODONE/ACETAMINOPHEN 5-325 MG 6 TAB/DSPK PO PRN (00:14)
[2016-07-21 00:30] LABS: ANION GAP 9 (5-19); BLOOD UREA NITROGEN 6 mg/dL (7-20); CALCIUM 8.4 mg/dL (8.4-10.2); CARBON DIOXIDE 22 mmol/L (22-30); CHLORIDE 109 mmol/L (98-107); CREATININE RESULT 0.63 mg/dL (0.52-1.25); GLUCOSE 97 mg/dL (75-110); POTASSIUM 3.5 mmol/L (3.6-5.0); SODIUM 140.4 mmol/L (137-145)
[2016-07-21 01:16] VITALS: BP 119/84
--- NOTE | 2016-07-21 09:16 | EKG REPORT ---
SEVERITY:- ABNORMAL ECG - SINUS RHYTHM FIRST DEGREE AV BLOCK : Confirmed by: Juan Luis Hutchins 21-Jul-2016 09:16:21
== END 2016-07-21 01:16 | disposition home or self-care (01) ==
LOC: ER 20:00
DX: G89.18 Other acute postprocedural pain (principal); E87.6 Hypokalemia; F41.9 Anxiety disorder, unspecified; R07.1 Chest pain on breathing; S82.002D Unspecified fracture of left patella, subsequent encounter for closed fracture with routine healing; R06.02 Shortness of breath; R50.9 Fever, unspecified; X58.XXXD Exposure to other specified factors, subsequent encounter; Z33.1 Pregnant state, incidental
CPT/HCPCS: 93005; 99284; 96361; 96365; 96366; 96367; 36415; 87040; 87086; 84702; 84703; 85025; 85610; 80048; 80053; 81001; 82803; 83605; 71010; 93010; J3480; J7030; J7120

== ENCOUNTER 2016-08-10 09:48 | Emergency (ER) | payer MEDICAID, OTHER ==
[2016-08-10] MEDS ORDERED: OXYCODONE-ACETAMINOPHEN 5-325 MG TABLET PO ONE (10:13)
[2016-08-10] MEDS ORDERED: ONDANSETRON 4 MG TAB.RAPDIS PO ONE (10:13)
--- NOTE | 2016-08-10 10:15 | ER Document Report ---
ED Medical Screen (RME) - General TRAVEL OUTSIDE OF THE [place] IN LAST 30 DAYS: No <GUIDO DON - Last Filed: 08/10/16 10:14> <MARIA LUISA VELASQUEZ - Last Filed: 08/10/16 11:54> - General Chief Complaint: Vaginal Bleeding Stated Complaint: VAGINAL BLEEDING Time Seen by Provider: 08/10/16 10:09 Notes: 35-year-old female is 6-7 weeks is known to be Rh-. Has had a clear malodorous vaginal discharge. About 8 AM this morning developed sharp pelvic cramping pain and later some bright red bleeding, now it is dark blood. I have greeted and performed a rapid initial assessment of this patient. A comprehensive ED assessment and evaluation of the patient, analysis of test results and completion of the medical decision making process will be conducted by additional ED providers. (GUIDO DON) - Related Data Allergies/Adverse Reactions: ibuprofen [From Motrin] Allergy (Verified 08/10/16 09:59) SHARP STOMACH PAIN NSAIDS (Non-Steroidal Anti-Inflamma [Nsaids] Allergy (Verified 08/10/16 09:59) aspirin [Aspirin] Adverse Reaction (Verified 08/10/16 09:59) SHARP STOMACH PAINS Past Medical History - General Last Menstrual Period: 06/2016 - Past Medical History Cardiac Medical History: Reports: Hx Hypertension Denies: Hx Coronary Artery Disease, Hx Heart Attack Pulmonary Medical History: Reports: Hx Bronchitis - EVERY COUPLE YEARS Denies: Hx Asthma, Hx COPD, Hx Pneumonia Neurological Medical History: Denies: Hx Cerebrovascular Accident, Hx Seizures Renal/ Medical History: Denies: Hx Peritoneal Dialysis Musculoskeltal Medical History: Reports Hx Arthritis - GENERALIZED ALL BODY, Reports Hx Fibromyalgia, Reports Hx Musculoskeletal Trauma - Patella fracture Psychiatric Medical History: Reports: Hx Anxiety, Hx Bipolar Disorder, Hx Depression, Hx Post Traumatic Stress Disorder Traumatic Medical History: Reports: Hx Fractures - Patella left Past Surgical History: Reports: Hx Section, Hx Genitourinary Surgery - Urethral stretching, Hx Orthopedic Surgery - L knee x2 - Immunizations Immunizations up to date: No Hx Diphtheria, Pertussis, Tetanus Vaccination: No <GUIDO DON - Last Filed: 08/10/16 10:14> Course - Laboratory Result Diagrams: 08/10/16 10:46 <MARIA LUISA VELASQUEZ - Last Filed: 08/10/16 11:54> - Vital Signs Vital signs: Temp Pulse Resp BP Pulse Ox 98.6 F 109 H 22 H 118/82 98 08/10/16 10:01 08/10/16 10:01 08/10/16 10:01 08/10/16 10:01 08/10/16 11:54 - Laboratory Laboratory results interpreted by me: 08/10/16 10:46 RDW 16.4 H
[2016-08-10 11:17] LABS: ABSOLUTE BASOPHILS # (AUTO) 0.1 10^3/uL (0.0-0.2); ABSOLUTE EOSINOPHILS # (AUTO) 0.1 10^3/uL (0.0-0.6); ABSOLUTE LYMPHOCYTES (AUTO) 4.5 10^3/uL (0.5-4.7); ABSOLUTE MONOCYTES (AUTO) 0.7 10^3/uL (0.1-1.4); ABSOLUTE NEUT (AUTO) 4.8 10^3/uL (1.7-8.2); BASOPHILS % (AUTO) 0.5 % (0-2); EOSINOPHILS % (AUTO) 0.8 % (0-6); HEMATOCRIT 40.4 % (36.0-47.0); HEMOGLOBIN 13.4 g/dL (12.0-15.5); HGB HCT DIFFERENCE -0.2; LYMPHOCYTES % (AUTO) 44.4 % (13-45); MEAN CORPUSCULAR HEMOGLOBIN 28.5 pg (27.0-33.4); MEAN CORPUSCULAR HGB CONC 33.1 g/dL (32.0-36.0); MEAN CORPUSCULAR VOLUME 86 fl (80-97); MONOCYTES % (AUTO) 6.7 % (3-13); RED BLOOD COUNT 4.68 10^6/uL (3.72-5.28); RED CELL DISTRIBUTION WIDTH 16.4 % (11.5-14.0); SEGMENTED NEUTROPHILS % (AUTO) 47.6 % (42-78); WHITE BLOOD COUNT 10.1 10^3/uL (4.0-10.5)
[2016-08-10] MEDS ORDERED: ACETAMINOPHEN 325 MG TABLET PO ONE (11:50)
--- NOTE | 2016-08-10 11:51 | ER Document Report ---
HPI - HPI Pain Level: 5 Notes: Patient is a 35-year-old female presents to the ED complaining of lower abdominal cramping and vaginal bleeding that started this morning. Patient states she 6-7 weeks . Patient did notice clear vaginal discharge that began this morning which then turned into bloody discharge. Patient also had increased urinary frequency voiding small amounts. She does not have any burning with urination. Patient also has associated nausea. She does not have an OB doctor. She does smoke but she denies any drugs or alcohol use. She does not have a PCM. Patient has had a total pregnancies for miscarried 4 live children with one being a . Patient states that she is Rh-. Otherwise she still eating and drink without any problems. Denies any headaches , fever, URI, sore throat, chest pain, palpitations, syncope, cough, wheeze, shortness of breath, dyspnea, vomiting/diarrhea, hematuria, rash. - ROS Notes: REVIEW OF SYSTEMS: CONSTITUTIONAL : Denies fever, chills, or sweats. Denies recent illness. EENT: Denies eye, ear, throat, or mouth pain or symptoms. Denies nasal or sinus congestion or discharge. Denies throat, tongue, or mouth swelling or difficulty swallowing. CARDIOVASCULAR: Denies chest pain. Denies palpitations or racing or irregular heart beat. Denies ankle edema. RESPIRATORY: Denies cough, cold, or chest congestion. Denies shortness of breath, difficulty breathing, or wheezing. GASTROINTESTINAL: see hpi GENITOURINARY: Denies difficulty urinating, painful urination, burning, frequency, blood in urine, or discharge. FEMALE GENITOURINARY: see hpi MUSCULOSKELETAL: Denies back or neck pain or stiffness. Denies joint pain or swelling. SKIN: Denies rash, lesions or sores. NEUROLOGICAL: Denies confusion or altered mental status. Denies passing out or loss of consciousness. Denies dizziness or lightheadedness. Denies headache. Denies weakness or paralysis or loss of use of either side. Denies problems with gait or speech. Denies sensory loss, numbness, or tingling. ALL OTHER SYSTEMS REVIEWED AND NEGATIVE. Dictation was performed using [employer] voice recognition software - REPRODUCTIVE Reproductive: REPORTS: : - DERM Skin Color: Normal Past Medical History - General Last Menstrual Period: 06/2016 - Social History Smoking Status: Current Every Day Smoker Family History: Arthritis, Malignancy, COPD, CVA, Hypertension, Reviewed & Not Pertinent Patient has suicidal ideation: No Patient has homicidal ideation: No - Past Medical History Cardiac Medical History: Reports: Hx Hypertension Denies: Hx Coronary Artery Disease, Hx Heart Attack Pulmonary Medical History: Reports: Hx Bronchitis - EVERY COUPLE YEARS Denies: Hx Asthma, Hx COPD, Hx Pneumonia Neurological Medical History: Denies: Hx Cerebrovascular Accident, Hx Seizures Renal/ Medical History: Denies: Hx Peritoneal Dialysis Musculoskeltal Medical History: Reports Hx Arthritis - GENERALIZED ALL BODY, Reports Hx Fibromyalgia, Reports Hx Musculoskeletal Trauma - Patella fracture Psychiatric Medical History: Reports: Hx Anxiety, Hx Bipolar Disorder, Hx Depression, Hx Post Traumatic Stress Disorder Traumatic Medical History: Reports: Hx Fractures - Patella left Past Surgical History: Reports: Hx Section, Hx Genitourinary Surgery - Urethral stretching, Hx Orthopedic Surgery - L knee x2 - Immunizations Immunizations up to date: No Hx Diphtheria, Pertussis, Tetanus Vaccination: No Vertical Provider Document - CONSTITUTIONAL Notes: PHYSICAL EXAMINATION: GENERAL: Well-appearing, well-nourished and in no acute distress. HEAD: Atraumatic, normocephalic. EYES: Pupils equal round and reactive to light, extraocular movements intact, sclera anicteric, conjunctiva are normal. ENT: oropharynx clear without exudates. No tonsilar hypertrophy or erythema. Moist mucous membranes. NECK: Normal range of motion, supple without lymphadenopathy LUNGS: Breath sounds clear to auscultation bilaterally and equal. No wheezes rales or rhonchi. HEART: Regular rate and rhythm without murmurs, rubs, gallops. ABDOMEN: Soft, nondistended abdomen. No guarding, no rebound. No masses appreciated. Normal bowel sounds present. No CVA tenderness bilaterally. + mild tenderness to pelvic/lower abdomen to palpation. Musculoskeletal: FROM to passive/active. Strength 5+/5. Extremities: No cyanosis, clubbing, or edema b/l. Peripheral pulses 2+. Capillary refill less than 3 seconds. NEUROLOGICAL: Cranial nerves grossly intact. Normal speech, normal gait. Normal sensory, motor exams PSYCH: Normal mood, normal affect. SKIN: Warm, Dry, normal turgor, no rashes or lesions noted. - INFECTION CONTROL TRAVEL OUTSIDE OF THE [place] IN LAST 30 DAYS: No - RESPIRATORY O2 Sat by Pulse Oximetry: 98 Course - Re-evaluation Re-evalutation: 08/10/16 15:[address] Judge: Patient is an afebrile, well-hydrated, 35-year-old female presents the ED with an intrauterine and vaginal bleeding, ?threatened . Cervical os is closed on US with an intra-uterine approximately 8 weeks gestation. Pt RH(-). Rhogam given today. Lab work otherwise unremarkable. Vitals are otherwise stable. PE otherwise unremarkable. Conservative measures for symptoms, Tylenol for pain. Important for her to recheck with OBGYN tomorrow with information provided. Establish/recheck with her PCM in 2-3 days. Return to the ED with any worsening/concerning symptoms as reviewed. Patient is in agreement. Pt declined urine sample. Low suspicion for any ectopic , dissecting aneurysm, sepsis, or acute abdomen. - Vital Signs Vital signs: Temp Pulse Resp BP Pulse Ox 98.6 F 109 H 22 H 118/82 98 08/10/16 10:01 08/10/16 10:01 08/10/16 10:01 08/10/16 10:01 08/10/16 10:01 - Laboratory Result Diagrams: 08/10/16 10:46 Laboratory results interpreted by me: 08/10/16 10:46 RDW 16.4 H Discharge - Discharge Clinical Impression: Vaginal bleeding, Intrauterine Condition: Stable Disposition: HOME, SELF-CARE Additional Instructions: Maintain fluids Tylenol for pain Cool compress/Warm packs as needed Recheck with the OB-REGULATORY LAW SPECIALIST tomorrow. Recheck/establish with PCM in 2-3 days Return to the ED with any worsening symptoms and/or development of fever, headache, chest pain, palpitations, syncope, shortness of breath, trouble breathing, abdominal pain, n/v/d, or other worsening symptoms that are concerning to you. Referrals: ARIS SALTER MD [ACTIVE STAFF] - Follow up as needed
--- NOTE | 2016-08-10 14:02 | RADIOLOGY REPORT (SQ) ---
EXAM DESCRIPTION: U/S OB TRANSVAGINAL W/O DOP COMPLETED DATE/TIME: 08/10/2016 1:29 pm REASON FOR STUDY: 7w, bleeding, cramps COMPARISON: 05/26/2016 TECHNIQUE: Transvaginal static and realtime grayscale images acquired of the pelvis. Additional celso cted spectral and color Doppler images recorded. All images stored on PACs. C,[id number] LIMITATIONS: None. FINDINGS: FETUS: Living intrauterine . EGA: 8 weeks 1 day TAVO: 03/21/2017 FHR: 165 beats per minute. SUBCHORIONIC BLEED: No SIZE OF BLEED: Not applicable. UTERUS: No masses. No anomalies. CERVICAL LENGTH: 2.6 cm Closed. RIGHT ADNEXA: Right ovary was not visualized. LEFT ADNEXA: Normal ovary with normal vascular flow. FREE FLUID: None. OTHER: No other significant finding. IMPRESSION: LIVING INTRAUTERINE . EGA 8 weeks 1 day Trimester of : First - 0 to 13 weeks. TECHNICAL DOCUMENTATION: JOB ID: [id number]- All Rights Reserved
[2016-08-10 15:18] VITALS: BP 109/72
== END 2016-08-10 15:35 | disposition home or self-care (01) ==
LOC: ER 09:48
DX: O46.91 Antepartum hemorrhage, unspecified, first trimester (principal); O36.0910 Maternal care for other rhesus isoimmunization, first trimester, not applicable or unspecified; O99.331 Smoking (tobacco) complicating pregnancy, first trimester; Z3A.01 Less than 8 weeks gestation of pregnancy; Z88.6 Allergy status to analgesic agent
CPT/HCPCS: 99284; 96372; 86900; 86901; 36415; 86850; 84702; 85025; 76817; J2790; S0119

== ENCOUNTER 2016-08-17 15:27 | Emergency (ER) | payer MEDICAID, OTHER ==
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
[2016-08-17 18:11] LABS: APPEARANCE,URINE CLOUDY; BILIRUBIN,URINE NEGATIVE (NEGATIVE); CALCIUM OXALATE CRYSTALS,URINE TOO NUMEROUS TO CNT /HPF; GLUCOSE, URINE NEGATIVE (NEGATIVE); KETONES,URINE TRACE mg/dL (NEGATIVE); LEUKOCYTE ESTERASE,URINE LARGE (NEGATIVE); NITRITE,URINE NEGATIVE (NEGATIVE); PROTEIN,URINE NEGATIVE (NEGATIVE); URINE SPECIFIC GRAVITY 1.014; UROBILINOGEN,URINE NEGATIVE mg/dL (<2.0)
[2016-08-17] MEDS ORDERED: NITROFURANTOIN MONOHYD/M-CRYST 100 MG CAPSULE PO ONE (18:33)
[2016-08-17 19:04] VITALS: BP 108/70
== END 2016-08-17 18:58 | disposition home or self-care (01) ==
LOC: ER 15:27
DX: O23.40 Unspecified infection of urinary tract in pregnancy, unspecified trimester (principal); O16.9 Unspecified maternal hypertension, unspecified trimester; O26.899 Other specified pregnancy related conditions, unspecified trimester; N89.8 Other specified noninflammatory disorders of vagina; Z3A.00 Weeks of gestation of pregnancy not specified; Z88.6 Allergy status to analgesic agent; Z88.8 Allergy status to other drugs, medicaments and biological substances
CPT/HCPCS: 99284; 81001; J3490; J8499

== ENCOUNTER 2017-11-18 22:08 | Emergency (ER) | payer MEDICAID ==
[2017-11-18] MEDS ORDERED: ACETAMINOPHEN 325 MG TABLET PO ONE (23:08)
--- NOTE | 2017-11-18 23:10 | ER Document Report ---
ED Medical Screen (RME) - General Chief Complaint: Abdominal Pain Stated Complaint: FEVER, VOMITING, ABDOMINAL PAINS Time Seen by Provider: 11/18/17 23:08 Mode of Arrival: Wheelchair Information source: Patient Notes: 37-year-old female presented to ED for complaint of bilateral abdominal pain with nausea vomiting and diarrhea. She states about 8:00 her temperature was 103.3 and she took 400 mg of ibuprofen. When she was seen in the [place] area her temperature was 99 but when I reassessed her in the pit area her temperature was 100.2. She states she continues to have abdominal pain nausea and vomiting. She was not vomiting when I assessed her. I have greeted and performed a rapid initial assessment of this patient. A comprehensive ED assessment and evaluation of the patient, analysis of test results and completion of medical decision making process will be conducted by an additional ED providers. TRAVEL OUTSIDE OF THE U.S. IN LAST 30 DAYS: No - Related Data Allergies/Adverse Reactions: ibuprofen [From Motrin] Allergy (Verified 10/07/16 17:47) SHARP STOMACH PAIN NSAIDS (Non-Steroidal Anti-Inflamma [Nsaids] Allergy (Verified 10/07/16 17:47) aspirin [Aspirin] Adverse Reaction (Verified 10/07/16 17:47) SHARP STOMACH PAINS Past Medical History - Past Medical History Cardiac Medical History: Reports: Hx Hypertension Denies: Hx Coronary Artery Disease, Hx Heart Attack Pulmonary Medical History: Reports: Hx Bronchitis - EVERY COUPLE YEARS Denies: Hx Asthma, Hx COPD, Hx Pneumonia Neurological Medical History: Denies: Hx Cerebrovascular Accident, Hx Seizures Renal/ Medical History: Denies: Hx Peritoneal Dialysis Musculoskeltal Medical History: Reports Hx Arthritis - GENERALIZED ALL BODY, Reports Hx Fibromyalgia, Reports Hx Musculoskeletal Trauma - Patella fracture Psychiatric Medical History: Reports: Hx Anxiety, Hx Bipolar Disorder, Hx Depression, Hx Post Traumatic Stress Disorder Traumatic Medical History: Reports: Hx Fractures - Patella left Past Surgical History: Reports: Hx Section, Hx Genitourinary Surgery - Urethral stretching, Hx Orthopedic Surgery - L knee x3 - Immunizations Immunizations up to date: No Hx Diphtheria, Pertussis, Tetanus Vaccination: No Physical Exam - Vital signs Vitals: Temp Pulse Resp BP Pulse Ox 99.8 F 128 H 16 120/71 97 11/18/17 22:33 11/18/17 22:33 11/18/17 22:33 11/18/17 22:33 11/18/17 22:33 Course - Vital Signs Vital signs: Temp Pulse Resp BP Pulse Ox 99.8 F 128 H 16 120/71 97 11/18/17 22:33 11/18/17 22:33 11/18/17 22:33 11/18/17 22:33 11/18/17 22:33
[2017-11-18] MEDS ORDERED: NORMAL SALINE 1000 ML 1,000 ML IV ONE (23:36)
[2017-11-18 23:37] LABS: ABSOLUTE LYMPHOCYTES (AUTO) 2.1 10^3/uL (0.5-4.7); ABSOLUTE MONOCYTES (AUTO) 1.4 10^3/uL (0.1-1.4); ABSOLUTE NEUT (AUTO) 13.2 10^3/uL (1.7-8.2); BASOPHILS % (AUTO) 0.2 % (0-2); HEMATOCRIT 38.3 % (36.0-47.0); HEMOGLOBIN 13.3 g/dL (12.0-15.5); LYMPHOCYTES % (AUTO) 12.7 % (13-45); MEAN CORPUSCULAR HEMOGLOBIN 29.5 pg (27.0-33.4); MEAN CORPUSCULAR HGB CONC 34.8 g/dL (32.0-36.0); MEAN CORPUSCULAR VOLUME 85 fl (80-97); MONOCYTES % (AUTO) 8.2 % (3-13); PLATELET COUNT 343 10^3/uL (150-450); RED BLOOD COUNT 4.52 10^6/uL (3.72-5.28); RED CELL DISTRIBUTION WIDTH 15.7 % (11.5-14.0); SEGMENTED NEUTROPHILS % (AUTO) 78.9 % (42-78); TOTAL CELLS COUNTED % (AUTO) 100 %; WHITE BLOOD COUNT 16.8 10^3/uL (4.0-10.5)
[2017-11-18] MEDS ORDERED: ONDANSETRON HCL INJ/PF 4 MG/2 ML SDV IV ONE (23:40)
[2017-11-18 23:45] LABS: APPEARANCE,URINE SLIGHTLY-CLOUDY; BILIRUBIN,URINE NEGATIVE (NEGATIVE); COLOR,URINE AMBER; GLUCOSE, URINE NEGATIVE (NEGATIVE); KETONES,URINE NEGATIVE (NEGATIVE); LEUKOCYTE ESTERASE,URINE TRACE (NEGATIVE); NITRITE,URINE NEGATIVE (NEGATIVE); PROTEIN,URINE >=500 mg/dL (NEGATIVE); URINE SPECIFIC GRAVITY 1.016
[2017-11-18 23:49] LABS: ALANINE AMINOTRANSFERASE 30 U/L (9-52); ALBUMIN 3.7 g/dL (3.5-5.0); ALKALINE PHOSPHATASE 108 U/L (38-126); ANION GAP 12 (5-19); ASPARTATE AMINO TRANSFERASE 16 U/L (14-36); BILIRUBIN,DIRECT 0.3 mg/dL (0.0-0.4); BILIRUBIN,TOTAL 0.8 mg/dL (0.2-1.3); BLOOD UREA NITROGEN 5 mg/dL (7-20); CALCIUM 8.9 mg/dL (8.4-10.2); CARBON DIOXIDE 29 mmol/L (22-30); CHLORIDE 93 mmol/L (98-107); GLUCOSE 117 mg/dL (75-110); POTASSIUM 3.1 mmol/L (3.6-5.0); SODIUM 134.2 mmol/L (137-145); TOTAL PROTEIN 7.3 g/dL (6.3-8.2)
--- NOTE | 2017-11-19 00:12 | ER Document Report ---
ED GI/ - General Chief Complaint: Abdominal Pain Stated Complaint: FEVER, VOMITING, ABDOMINAL PAINS Time Seen by Provider: 11/18/17 23:08 Mode of Arrival: Wheelchair Information source: Patient Notes: Patient is an otherwise healthy 37-year-old female who presents with chief complaint of abdominal pain, bilateral flank pain, fever, vomiting and diarrhea. Patient reports that all of her symptoms started 2 days ago. Patient states that prior to the onset of symptoms she was having a lot of urinary pressure but denies any dysuria or frequency. Denies abnormal vaginal discharge. Patient states she has vomited 6-8 times today and has had at least 12 episodes of diarrhea. Patient reports past medical history of pyelonephritis , denies any abdominal surgeries. Unknown when her last menstrual cycle was although it has not been in the last 1-2 weeks. TRAVEL OUTSIDE OF THE [place] IN LAST 30 DAYS: No - Related Data Allergies/Adverse Reactions: ibuprofen [From Motrin] Allergy (Verified 10/07/16 17:47) SHARP STOMACH PAIN NSAIDS (Non-Steroidal Anti-Inflamma [Nsaids] Allergy (Verified 10/07/16 17:47) aspirin [Aspirin] Adverse Reaction (Verified 10/07/16 17:47) SHARP STOMACH PAINS Past Medical History - General Information source: Patient - Social History Smoking Status: Never Smoker Frequency of alcohol use: None Drug Abuse: None Family History: Arthritis, Malignancy, COPD, CVA, Hypertension, Reviewed & Not Pertinent - Past Medical History Cardiac Medical History: Reports: Hx Hypertension Denies: Hx Coronary Artery Disease, Hx Heart Attack Pulmonary Medical History: Reports: Hx Bronchitis - EVERY COUPLE YEARS Denies: Hx Asthma, Hx COPD, Hx Pneumonia Neurological Medical History: Denies: Hx Cerebrovascular Accident, Hx Seizures Renal/ Medical History: Denies: Hx Peritoneal Dialysis Musculoskeletal Medical History: Reports Hx Arthritis - GENERALIZED ALL BODY, Reports Hx Fibromyalgia, Reports Hx Musculoskeletal Trauma - Patella fracture Psychiatric Medical History: Reports: Hx Anxiety, Hx Bipolar Disorder, Hx Depression, Hx Post Traumatic Stress Disorder Traumatic Medical History: Reports: Hx Fractures - Patella left Past Surgical History: Reports: Hx Section, Hx Genitourinary Surgery - Urethral stretching, Hx Orthopedic Surgery - L knee x3 - Immunizations Immunizations up to date: No Hx Diphtheria, Pertussis, Tetanus Vaccination: No Review of Systems - Review of Systems Gastrointestinal: Abdominal pain, Diarrhea, Nausea, Vomiting -: Yes All other systems reviewed and negative Physical Exam - Vital signs Vitals: Temp Pulse Resp BP Pulse Ox 99.8 F 128 H 16 120/71 97 11/18/17 22:33 11/18/17 22:33 11/18/17 22:33 11/18/17 22:33 11/18/17 22:33 - Notes Notes: PHYSICAL EXAMINATION: GENERAL: Well-appearing, well-nourished and in no acute distress. HEAD: Atraumatic, normocephalic. EYES: Pupils equal round and reactive to light, extraocular movements intact, conjunctiva are normal. ENT: Nares patent, oropharynx clear without exudates. Moist mucous membranes. NECK: Normal range of motion, supple without lymphadenopathy LUNGS: Breath sounds clear to auscultation bilaterally and equal. No wheezes rales or rhonchi. HEART: Regular rate and rhythm without murmurs ABDOMEN: Soft, mildly tender, nondistended abdomen. No guarding, no rebound. No masses appreciated. Female : Bilateral CVA tenderness. Refused pelvic. Musculoskeletal: Normal range of motion, no pitting or edema. No cyanosis. NEUROLOGICAL: Cranial nerves grossly intact. Normal speech, normal gait. Normal sensory, motor exams PSYCH: Normal mood, normal affect. SKIN: Warm, Dry, normal turgor, no rashes or lesions noted. Course - Re-evaluation Re-evalutation: Patient with leukocytosis, WBC 16.8, likely due to the vomiting. Comprehensive metabolic panel with potassium 3.1, p.o. potassium replacement ordered. Urinalysis with proteinuria, large blood, trace leukocyte esterase and 1+ bacteria. Quantitative hCG was performed after a positive qualitative hCG was obtained. Quant is 3162. Patient did not know she was . Reports last period was approximately 6 weeks ago. Patient declines pelvic exam stating that she does not have any vaginal discharge that she does not want both a pelvic exam and a transvaginal ultrasound. Patient was given IV fluids and sent for both a pelvic ultrasound to evaluate the status of her is well as a retroperitoneal ultrasound to evaluate her kidneys due to the complaints of flank pain. Pelvic ultrasound reveals an intrauterine of approximately 6 weeks in gestation. No abnormalities noted. Retroperitoneal ultrasound of the bilateral kidneys reveals a possible right sided punctate renal stone. Repeat abdominal assessment is benign, patient continues to report flank pain more than abdominal pain. There is no right lower quadrant pain no rebound no guarding or no tenderness. Although it would be very unlikely for this to be an acute appendicitis based upon her physical exam. Due to patient's initial mildly elevated temperature we will treat her with 1 g of ceftriaxone IV and place her on p.o. antibiotics for cystitis. Patient will have close follow-up with her DIALYSIS PATIENT CARE TECHNICIAN provider patient. Patient is feeling much improved and is ready to go home. Strict ED return precautions were given to include appendicitis return precautions. - Vital Signs Vital signs: Temp Pulse Resp BP Pulse Ox 98.3 F 95 16 109/79 97 11/19/17 05:18 11/19/17 05:18 11/19/17 05:18 11/19/17 05:02 11/19/17 05:18 - Laboratory Result Diagrams: 11/18/17 23:20 11/18/17 23:20 Laboratory results interpreted by me: 11/18/17 11/18/17 11/18/17 23:20 23:20 23:20 WBC 16.8 H RDW 15.7 H Seg Neutrophils % 78.9 H Lymphocytes % 12.7 L Absolute Neutrophils 13.2 H Sodium 134.2 L Potassium 3.1 L Chloride 93 L BUN 5 L Glucose 117 H Serum HCG, Qual POSITIVE H Beta HCG, Quant Urine Protein Urine Blood Urine Urobilinogen Ur Leukocyte Esterase 11/18/17 11/18/17 23:20 23:20 WBC RDW Seg Neutrophils % Lymphocytes % Absolute Neutrophils Sodium Potassium Chloride BUN Glucose Serum HCG, Qual Beta HCG, Quant 3162.30 H Urine Protein >=500 H Urine Blood LARGE H Urine Urobilinogen 4.0 H Ur Leukocyte Esterase TRACE H Discharge - Discharge Clinical Impression: Flank pain, Cystitis Fever Qualifiers: Fever type: unspecified Qualified Code(s): R50.9 - Fever, unspecified Qualifiers: Weeks of gestation: less than 8 weeks Qualified Code(s): Z3A.01 - Less than 8 weeks gestation of Condition: Stable Disposition: HOME, SELF-CARE Additional Instructions: Abdominal Pain There are many causes of abdominal pain. Pain can mean a serious problem requiring surgery (such as appendicitis). It can also be an innocent problem that goes away on its own (such as a viral infection). Often, time must pass to determine the cause of pain. The physician does not feel that hospitalization is necessary, at present. Things may change within the next 24 hours. Call the doctor or come back for re- examination if any problems occur, such as: (1) Pain that becomes more severe, steady, or becomes concentrated in one specific area. Also, pain that is more severe with movement or coughing. (2) Vomiting that persists or becomes more frequent. (3) Blood in the vomitus, urine, or bowel movements. Blood in the stool may have a tarry or black appearance. (4) Shaking chills or fever greater than 100 degrees F. (5) The abdomen becomes more distended or swollen. (6) Bowel movements cease. (7) Failure to improve as expected. The pelvic ultrasound that was done reveals that you are approximately 6 weeks . Please follow-up with your DIALYSIS PATIENT CARE TECHNICIAN, call them Monday for an appointment. The ultrasound done of your kidneys shows a possible kidney stone in the right kidney. You were given a dose of IV ceftriaxone in the emergency department. I will send your urine for a urine culture. Please take the antibiotics as prescribed. Use the antinausea medication as prescribed. Return to the emergency department for any of the above symptoms. Prescriptions: Cephalexin [Cephalexin 500 MG Tablet] 1 tab PO QID #28 tablet
--- NOTE | 2017-11-19 01:54 | RADIOLOGY REPORT (SQ) ---
EXAM DESCRIPTION: US TRANSVAGINAL COMPLETED DATE/TME: 11/19/2017 00:18 CLINICAL HISTORY: 37 years, Female, +preg, abd pain, fever LMP not provided. COMPARISON: None. TECHNIQUE: Complete first trimester obstetrical ultrasound with transvaginal imaging. FINDINGS: Uterus measures 8.7 x 6.0 x 5.0 cm. Cervical length of 3.0 cm. No myometrial abnormalities. Gestational sac identified in the endometrium. pole identified. Elwin-rump length of 0.36 cm compatible with an estimated gestational age of 6 weeks, 0 days. Estimated delivery date of 07/15/2017 cardiac activity identified with a heart rate of 122 bpm. No abnormalities of the yolk sac identified. Gestational sac has normal qualitative appearance. No free pelvic fluid. The ovaries are not identified bilaterally due to overlying structures. IMPRESSION: 1. Single live intrauterine with estimated gestational age of 6 weeks, 0 days. heart rate of 122 bpm. Continued obstetrical follow-up recommended. 2010 [employer]- All Rights Reserved
[2017-11-19] MEDS ORDERED: POTASSIUM CHLORIDE 10 MEQ CAPSULE.ER PO ONE (02:33)
[2017-11-19] MEDS ORDERED: NORMAL SALINE 1000 ML 1,000 ML IV ONE (03:40)
--- NOTE | 2017-11-19 03:54 | RADIOLOGY REPORT (SQ) ---
EXAM DESCRIPTION: US RETROPERITONEUM COMPLETED DATE/TME: 11/19/2017 02:38 CLINICAL HISTORY: 37 years Female, eval B/L kidneys, +preg, flank pain, fever Comparison:05/21/2015 LIMITATIONS: None. FINDINGS: 12-cm right kidney with punctate echogenicity which may indicate punctate nephrolithiasis or artifact, 13-cm left kidney, and decompressed urinary bladder appear otherwise of normal size, shape, echotexture, and vascularity. IMPRESSION: Possible punctate right nephrolithiasis. Else, unremarkable.
[2017-11-19] MEDS ORDERED: ONDANSETRON HCL INJ/PF 4 MG/2 ML SDV IV ONE (04:57)
[2017-11-19] MEDS ORDERED: CEFTRIAXONE INJ 1000 MG VIAL IV ONE (04:57)
[2017-11-19] MEDS ORDERED: ONDANSETRON ODT 4 MG TAB (6 TAB/ER DISP) PO PRN (05:12)
[2017-11-19] MEDS ORDERED: HYDROCODONE/ACETAMINOPHEN 5-325 MG (6 TAB/ER DISP) PO PRN (05:17)
[2017-11-19 05:18] VITALS: BP 109/79
== END 2017-11-19 05:38 | disposition home or self-care (01) ==
LOC: ER 22:08
DX: O23.11 Infections of bladder in pregnancy, first trimester (principal); N30.90 Cystitis, unspecified without hematuria; R10.9 Unspecified abdominal pain; R50.9 Fever, unspecified; R11.10 Vomiting, unspecified; R19.7 Diarrhea, unspecified; I10 Essential (primary) hypertension; Z3A.01 Less than 8 weeks gestation of pregnancy; Z88.6 Allergy status to analgesic agent
CPT/HCPCS: 96376; 99284; 96361; 96375; 96365; 36415; 87086; 84702; 84703; 85025; 87088; 80053; 81001; 87186; 76817; 76770; J3490; J0696; J2405; J7030

== ENCOUNTER 2018-03-30 10:34 | Outpatient (CLI) | payer MEDICAID ==
[2018-03-30] MEDS ORDERED: RINGERS SOLUTION,LACTATED 1,000 ML IV ONE (11:23)
[2018-03-30] MEDS ORDERED: ONDANSETRON HCL INJ/PF 4 MG/2 ML SDV IV ONE (11:25)
[2018-03-30] MEDS ORDERED: ONDANSETRON HCL INJ/PF 4 MG/2 ML SDV ONE (11:27)
[2018-03-30 11:42] LABS: APPEARANCE,URINE SLIGHTLY-CLOUDY; BILIRUBIN,URINE NEGATIVE (NEGATIVE); GLUCOSE, URINE NEGATIVE (NEGATIVE); KETONES,URINE TRACE mg/dL (NEGATIVE); LEUKOCYTE ESTERASE,URINE SMALL (NEGATIVE); NITRITE,URINE NEGATIVE (NEGATIVE); PROTEIN,URINE 30 mg/dL (NEGATIVE); URINE SPECIFIC GRAVITY 1.024
[2018-03-30] MEDS ORDERED: ACETAMINOPHEN 325 MG TABLET ONE (11:46)
[2018-03-30] MEDS ORDERED: ACETAMINOPHEN 325 MG TABLET PO ONE (11:48)
[2018-03-30 11:50] LABS: COLOR,URINE YELLOW
[2018-03-30 11:58] LABS: URINE AMPHETAMINES SCREEN NEGATIVE; URINE BARBITURATES SCREEN NEGATIVE; URINE BENZODIAZEPINES SCREEN NEGATIVE; URINE COCAINE SCREEN NEGATIVE; URINE PHENCYCLIDINE SCREEN NEGATIVE
[2018-03-30 12:05] LABS: URINE MARIJUANA (THC) SCREEN UNCONFIRMED POSITIVE; URINE METHADONE SCREEN UNCONFIRMED POSITIVE
[2018-03-30] MEDS ORDERED: HYDROXYZINE PAMOATE 50 MG CAPSULE ONE (12:15)
[2018-03-30] MEDS ORDERED: IBUPROFEN 800 MG TABLET ONE (14:20)
[2018-03-30] MEDS ORDERED: HYDROXYZINE PAMOATE 50 MG CAPSULE PO ONE (15:00)
== END 2018-03-30 14:37 | disposition home or self-care (01) ==
LOC: LC 10:34
PROVIDERS: ATTEND Obstetrics & Gynecology
PROC: 4A1HXCZ Monitoring of Products of Conception, Cardiac Rate, External Approach (ICD-10-PCS; principal; 2018-03-30)
DX: O26.892 Other specified pregnancy related conditions, second trimester (principal); R10.9 Unspecified abdominal pain; O99.332 Smoking (tobacco) complicating pregnancy, second trimester; F17.210 Nicotine dependence, cigarettes, uncomplicated; O09.522 Supervision of elderly multigravida, second trimester; O09.32 Supervision of pregnancy with insufficient antenatal care, second trimester; Z3A.24 24 weeks gestation of pregnancy
CPT/HCPCS: 59899; 81001; 80307; G0480 ×2; J3490 ×3; J2405; 80349

== ENCOUNTER 2018-04-05 08:38 | Outpatient (CLI) | payer MEDICAID ==
[2018-04-05 09:07] LABS: APPEARANCE,URINE SLIGHTLY-CLOUDY; BILIRUBIN,URINE SMALL (NEGATIVE); COLOR,URINE DARK YELLOW; GLUCOSE, URINE NEGATIVE (NEGATIVE); KETONES,URINE NEGATIVE (NEGATIVE); LEUKOCYTE ESTERASE,URINE MODERATE (NEGATIVE); NITRITE,URINE NEGATIVE (NEGATIVE); PROTEIN,URINE 30 mg/dL (NEGATIVE); URINE SPECIFIC GRAVITY 1.023
[2018-04-05 09:27] LABS: URINE AMPHETAMINES SCREEN NEGATIVE; URINE BARBITURATES SCREEN NEGATIVE; URINE BENZODIAZEPINES SCREEN NEGATIVE; URINE COCAINE SCREEN NEGATIVE; URINE PHENCYCLIDINE SCREEN NEGATIVE
[2018-04-05 09:30] LABS: URINE MARIJUANA (THC) SCREEN UNCONFIRMED POSITIVE; URINE METHADONE SCREEN UNCONFIRMED POSITIVE
[2018-04-05] MEDS ORDERED: PROMETHAZINE HCL INJ 25 MG/1 ML VIAL ONE (09:33)
[2018-04-05] MEDS ORDERED: RINGERS SOLUTION,LACTATED 1,000 ML IV PRN (09:35)
[2018-04-05] MEDS ORDERED: RINGERS SOLUTION,LACTATED 1,000 ML IV ONE (09:35)
[2018-04-05] MEDS ORDERED: PROMETHAZINE HCL INJ 25 MG/1 ML VIAL IV ONE (09:41)
[2018-04-05 10:17] LABS: ABSOLUTE EOSINOPHILS # (AUTO) 0.2 10^3/uL (0.0-0.6); ABSOLUTE LYMPHOCYTES (AUTO) 2.6 10^3/uL (0.5-4.7); ABSOLUTE MONOCYTES (AUTO) 0.5 10^3/uL (0.1-1.4); BASOPHILS % (AUTO) 0.2 % (0-2); EOSINOPHILS % (AUTO) 1.9 % (0-6); HEMATOCRIT 31.6 % (36.0-47.0); HEMOGLOBIN 11.4 g/dL (12.0-15.5); LYMPHOCYTES % (AUTO) 27.9 % (13-45); MEAN CORPUSCULAR HEMOGLOBIN 31.8 pg (27.0-33.4); MEAN CORPUSCULAR HGB CONC 36.2 g/dL (32.0-36.0); MEAN CORPUSCULAR VOLUME 88 fl (80-97); PLATELET COUNT 229 10^3/uL (150-450); RED BLOOD COUNT 3.59 10^6/uL (3.72-5.28); RED CELL DISTRIBUTION WIDTH 12.7 % (11.5-14.0); TOTAL CELLS COUNTED % (AUTO) 100 %; WHITE BLOOD COUNT 9.3 10^3/uL (4.0-10.5)
--- NOTE | 2018-04-05 12:44 | RADIOLOGY REPORT (SQ) ---
EXAM DESCRIPTION: U/S OB LIMITED COMPLETED DATE/TIME: 04/05/2018 12:24 pm REASON FOR STUDY: 25 wks cervical length COMPARISON: Bilateral renal ultrasound 04/05/2018 Ob ultrasound 11/19/2017 TECHNIQUE: Limited transvaginal and transabdominal grayscale ultrasound for evaluation of specific r equested obstetrical parameters. LIMITATIONS: None. FINDINGS: CERVICAL LENGTH: 2 cm in length. Some funneling of the cervix is present. Mucus plug is still present. JONO: Largest pocket 8.1 cm. FHR: 130 beats per minute. PRESENTATION: Cephalic. PLACENTA: Posterior grade 1, no abruption or previa. ANATOMY: Not assessed OTHER: No other significant findings. IMPRESSION: Cervix is 2 cm in length with funneling. Mucus plug is still present. Trimester of : Second trimester - 13 weeks 1 day to 27 weeks 6 days. TECHNICAL DOCUMENTATION: JOB ID: [id number] [employer]- All Rights Reserved Reading location - IP/workstation name: [email or web address]
--- NOTE | 2018-04-05 12:57 | RADIOLOGY REPORT (SQ) ---
EXAM DESCRIPTION: U/S RETROPERITON (RENAL/AORTA) COMPLETED DATE/TIME: 04/05/2018 12:24 pm REASON FOR STUDY: bilateral renal u/s 25 wk iup h/o kidney stones COMPARISON: OB ultrasound same date Renal ultrasound 11/19/2017 TECHNIQUE: Dynamic and static grayscale images acquired of the kidneys and bladder and recorded on P ACS. Additional selected color Doppler and spectral images recorded. LIMITATIONS: None. FINDINGS: RIGHT KIDNEY: Normal size. Normal echogenicity. No solid or suspicious masses. No hydronep hrosis. No calcifications. LEFT KIDNEY: Normal size. Normal echogenicity. No solid or suspicious masses. No hydronephrosis. No calcifications. BLADDER: No masses. No bladder calculi OTHER FINDINGS: No other significant finding. IMPRESSION: NORMAL RENAL AND BLADDER ULTRASOUND. TECHNICAL DOCUMENTATION: JOB ID: [id number] [employer]- All Rights Reserved Reading location - IP/workstation name: [email or web address]
[2018-04-05 15:15] LABS: ALANINE AMINOTRANSFERASE 18 U/L (9-52); ALBUMIN 3.2 g/dL (3.5-5.0); ALKALINE PHOSPHATASE 75 U/L (38-126); ANION GAP 9 (5-19); ASPARTATE AMINO TRANSFERASE 15 U/L (14-36); BILIRUBIN,DIRECT 0.1 mg/dL (0.0-0.4); BILIRUBIN,TOTAL 0.2 mg/dL (0.2-1.3); BLOOD UREA NITROGEN 5 mg/dL (7-20); CALCIUM 8.4 mg/dL (8.4-10.2); CARBON DIOXIDE 20 mmol/L (22-30); CHLORIDE 107 mmol/L (98-107); GLUCOSE 86 mg/dL (75-110); TOTAL PROTEIN 6.1 g/dL (6.3-8.2); URIC ACID 4.2 mg/dL (2.5-7.0)
== END 2018-04-05 14:00 | disposition home or self-care (01) ==
LOC: LC 08:38
PROVIDERS: ATTEND Obstetrics & Gynecology Gynecology
DX: O26.892 Other specified pregnancy related conditions, second trimester (principal); E86.0 Dehydration; O99.332 Smoking (tobacco) complicating pregnancy, second trimester; F17.210 Nicotine dependence, cigarettes, uncomplicated; O98.512 Other viral diseases complicating pregnancy, second trimester; Z3A.25 25 weeks gestation of pregnancy; Z09 Encounter for follow-up examination after completed treatment for conditions other than malignant neoplasm; Z87.442 Personal history of urinary calculi; F12.21 Cannabis dependence, in remission; Z72.89 Other problems related to lifestyle
CPT/HCPCS: 36415; 87086; 84550; 85025; 80053; 81001; 80307; 76770; 76815; J2550

== ENCOUNTER 2018-06-12 08:55 | Inpatient (IN) | payer MEDICAID ==
[2018-06-12] MEDS ORDERED: MISOPROSTOL 0.2 MG TABLET ONE (09:25)
[2018-06-12] MEDS ORDERED: LIDOCAINE 1% INJ-PF (10 MG/ML) 30 ML SDV ONE (09:25)
[2018-06-12] MEDS ORDERED: OXYTOCIN/NORMAL SALINE 20 UNIT/1,000 ML RTUINJ ONE (09:26)
[2018-06-12] MEDS ORDERED: PENICILLIN G-K 5 MILLION UNIT VIAL ONE ×2 (09:26→13:31)
[2018-06-12] MEDS ORDERED: BETAMET ACET/BETAMET NA INJ 6 MG/1 ML ONE (09:30)
[2018-06-12 09:40] LABS: APPEARANCE,URINE SLIGHTLY-CLOUDY; BILIRUBIN,URINE NEGATIVE (NEGATIVE); COLOR,URINE YELLOW; GLUCOSE, URINE NEGATIVE (NEGATIVE); KETONES,URINE NEGATIVE (NEGATIVE); LEUKOCYTE ESTERASE,URINE SMALL (NEGATIVE); NITRITE,URINE NEGATIVE (NEGATIVE); PROTEIN,URINE 30 mg/dL (NEGATIVE); URINE SPECIFIC GRAVITY 1.015; UROBILINOGEN,URINE NEGATIVE mg/dL (<2.0)
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
[2018-06-12 09:58] LABS: URINE AMPHETAMINES SCREEN NEGATIVE; URINE BARBITURATES SCREEN NEGATIVE; URINE BENZODIAZEPINES SCREEN NEGATIVE; URINE COCAINE SCREEN NEGATIVE; URINE MARIJUANA (THC) SCREEN NEGATIVE; URINE PHENCYCLIDINE SCREEN NEGATIVE
[2018-06-12 10:08] LABS: URINE METHADONE SCREEN UNCONFIRMED POSITIVE
[2018-06-12] MEDS ORDERED: BETAMET ACET/BETAMET NA INJ 6 MG/1 ML IM STA (10:17)
[2018-06-12 10:18] LABS: ABSOLUTE LYMPHOCYTES (AUTO) 2.2 10^3/uL (0.5-4.7); ABSOLUTE MONOCYTES (AUTO) 0.7 10^3/uL (0.1-1.4); ABSOLUTE NEUT (AUTO) 7.9 10^3/uL (1.7-8.2); BASOPHILS % (AUTO) 0.2 % (0-2); EOSINOPHILS % (AUTO) 0.4 % (0-6); HEMOGLOBIN 10.4 g/dL (12.0-15.5); LYMPHOCYTES % (AUTO) 20.7 % (13-45); MEAN CORPUSCULAR HEMOGLOBIN 29.3 pg (27.0-33.4); MEAN CORPUSCULAR HGB CONC 34.6 g/dL (32.0-36.0); MEAN CORPUSCULAR VOLUME 85 fl (80-97); MONOCYTES % (AUTO) 6.1 % (3-13); PLATELET COUNT 268 10^3/uL (150-450); RED BLOOD COUNT 3.55 10^6/uL (3.72-5.28); RED CELL DISTRIBUTION WIDTH 13.5 % (11.5-14.0); SEGMENTED NEUTROPHILS % (AUTO) 72.6 % (42-78); TOTAL CELLS COUNTED % (AUTO) 100 %; WHITE BLOOD COUNT 10.9 10^3/uL (4.0-10.5)
[2018-06-12] MEDS ORDERED: OXYTOCIN/NORMAL SALINE 20 UNIT/1,000 ML RTUINJ IV PRN ×2 (12:19→16:34)
[2018-06-12] MEDS ORDERED: PSEUDOEPHEDRINE HCL 30 MG TABLET PO PRN (16:34)
[2018-06-12] MEDS ORDERED: MEASLES,MUMPS&RUBELLA VACC/PF 0.5 ML VIAL SUBCUT PRN (16:34)
[2018-06-12] MEDS ORDERED: ACETAMINOPHEN 650 MG SUPP.RECT PR PRN (16:34)
[2018-06-12] MEDS ORDERED: DIPH/PERTUSS(ACELL)/TETANUS VAC/PF 0.5 ML SYR (>=10YO) IM PRN (16:34)
[2018-06-12] MEDS ORDERED: NA PHOS,M-B/NA PHOS,DI-BA (ADULT) 133 ML ENEMA PR PRN (16:34)
[2018-06-12] MEDS ORDERED: MAGNESIUM HYDROXIDE SUSP 30 ML UDCUP PO PRN (16:34)
[2018-06-12] MEDS ORDERED: GLYCERIN/WITCH HAZEL LEAF 1 EACH MED..WIPE TP PRN (16:34)
[2018-06-12] MEDS ORDERED: ACETAMINOPHEN WITH CODEINE #3 TABLET PO PRN (16:34)
[2018-06-12] MEDS ORDERED: ZOLPIDEM TARTRATE 5 MG TABLET PO PRN (16:34)
[2018-06-12] MEDS ORDERED: DIBUCAINE 1% OINTMENT 56 GM TP PRN (16:34)
[2018-06-12] MEDS ORDERED: BENZOCAINE/MENTHOL AEROSOL SPRAY 56 ML TOP PRN (16:34)
[2018-06-12] MEDS ORDERED: PROMETHAZINE HCL INJ 25 MG/1 ML VIAL IV PRN (16:34)
[2018-06-12] MEDS ORDERED: PROMETHAZINE HCL 25 MG TABLET PO PRN (16:34)
[2018-06-12] MEDS ORDERED: PROMETHAZINE HCL 25 MG SUPP.RECT PR PRN (16:34)
[2018-06-12] MEDS ORDERED: ACETAMINOPHEN 325 MG TABLET ONE (17:03)
[2018-06-12] MEDS ORDERED: PROMETHAZINE HCL INJ 25 MG/1 ML VIAL ONE (19:42)
[2018-06-12] MEDS ORDERED: ACETAMINOPHEN WITH CODEINE #3 TABLET ONE (19:43)
[2018-06-12] MEDS: DIPHENHYDRAMINE HCL 25 MG CAPSULE PO PRN (21:29)
[2018-06-12] MEDS: FAMOTIDINE 20 MG TABLET PO SCH (21:30)
[2018-06-12] MEDS: FERROUS SULFATE 325 MG TABLET PO SCH (23:59)
[2018-06-12] MEDS: DOCUSATE SODIUM 100 MG CAPSULE PO SCH (23:59)
[2018-06-13] MEDS: ACETAMINOPHEN WITH CODEINE #3 TABLET PO PRN ×4 (06:36→20:01)
[2018-06-13 08:55] LABS: HEMOGLOBIN 9.5 g/dL (12.0-15.5); MEAN CORPUSCULAR HEMOGLOBIN 29.4 pg (27.0-33.4); MEAN CORPUSCULAR HGB CONC 34.1 g/dL (32.0-36.0); MEAN CORPUSCULAR VOLUME 86 fl (80-97); PLATELET COUNT 259 10^3/uL (150-450); RED BLOOD COUNT 3.24 10^6/uL (3.72-5.28); RED CELL DISTRIBUTION WIDTH 13.7 % (11.5-14.0); WHITE BLOOD COUNT 12.4 10^3/uL (4.0-10.5)
--- NOTE | 2018-06-13 09:05 | Delivery Summary ---
Del Sum A-C Datetime Report Generated by CPN: 06/13/2018 09:05 DELIVERY PERSONNEL DELIVERY PERSONNEL: [id number] Delivery Doctor:: Jass Pendleton MD Labor and Delivery Nurse:: Elizabeth Hays RNbehavior clinician Nurse:: Gretel Starks RN Nursery Nurse:: Chaya Lozano RN Nursery Nurse:: Zena Fernandez RN Braille Typist/COIL WINDING MACHINES SET UP MECHANIC: Angela Blum CNA II Braille Typist/COIL WINDING MACHINES SET UP MECHANIC: Manjula Kumar, WIRED MUSIC OPERATOR Additional Personnel: : Tamra Markham, RNC MATERNAL INFORMATION Delivery Anesthesia: None Medications After Delivery: Pitocin Bolus-Please Comment Estimated Blood Loss (ml): 125 Maternal Complications: Precipitous Labor (<3hrs); Premature Rupture of Membranes; Other Complication Details: LABOR SUMMARY EDC: 07/18/2018 00:00 No. Babies in Womb: 1 Attempted: Yes Labor Anesthesia: None LABOR INFORMATION Reason for Induction: Not Applicable Onset of Labor: 06/12/2018 15:00 Complete Dilatation: 06/12/2018 16:24 Oxytocin: Augmentation Group B Beta Strep: unknown Antibiotics # of Doses: 2 Antibiotics Time of Last Dose: 1336 Name of Antibiotic Given: Penicillin Steroids Given: Partial Course Reason Steroids Not Administered: Imminent Delivery MEMBRANES Membranes Rupture Method: Spontaneous Rupture of Membranes: 06/12/2018 08:00 Length of Rupture (hr): 8.42 Amniotic Fluid Color: Clear Amniotic Fluid Amount: Small Amniotic Fluid Odor: None STAGES OF LABOR Stage 1 hr: 1 Stage 1 min: 24 Stage 2 hr: 0 Stage 2 min: 1 Stage 3 hr: 0 Stage 3 min: 4 Total Time in Labor hr: 1 Total Time in Labor min: 29 VAGINAL DELIVERY Episiotomy: None Laceration #1: None Laceration Extension #1: N/A Laceration #2: None Laceration Extension #2: N/A Laceration #3: None Laceration Extension #3: N/A Laceration Repair: Not Applicable Sponge Count Correct: Vaginal Sweep Performed Sharps Count Correct: Yes CSECTION DELIVERY Primary Indication: N/A Secondary Indication: N/A CSection Incidence: N/A Labor: N/A Elective: N/A CSection Incision: N/A BABY A INFORMATION Infant Delivery Date/Time: 06/12/2018 16:25 Method of Delivery: Vaginal Method of Delivery: Vaginal Born in Route : No : Successful Forceps: N/A Vacuum Extraction: N/A Shoulder Dystocia : No PRESENTATION/POSITION BABY A Presentation: Cephalic Cephalic Presentation: Vertex Vertex Position: Right Occipital Anterior Breech Presentation: N/A PLACENTA INFORMATION BABY A Placenta Delivery Time : 06/12/2018 16:29 Placenta Method of Delivery: Spontaneous Placenta Method of Delivery: Spontaneous Placenta Status: Delivered SCORES BABY A Heart Rate 1 min: >100 bpm Resp Effort 1 min: Good Cry Reflex Irritability 1 min: Cough or Sneeze or Pulls Away Muscle Tone 1 min: Active Motion Color 1 min: Body [place], Extremities Blue Resuscitation Effort 1 min: Tactile Stimulation SCORE 1 MIN: 9 Heart Rate 5 min: >100 bpm Resp Effort 5 min: Good Cry Reflex Irritability 5 min: Cough or Sneeze or Pulls Away Muscle Tone 5 min: Active Motion Color 5 min: Body [place], Extremities Blue Resuscitation Effort 5 min: Tactile Stimulation SCORE 5 MIN: 9 INFANT INFORMATION BABY A Gestational Age at Delivery: 34.6 Gestational Status: Late - 34- 36.6 Weeks Infant Outcome : Liveborn Condition : Stable Sex: Female Infant Sex: Female IDENTIFICATION BABY A Infant Verification Date/Time: 06/12/2018 17:23 ID Band Number: [id number] Mother's Name Verified: Yes RN Verifying Infant: M HILL RN, C. [place] RN WEIGHT/LENGTH BABY A Birthweight (gm): 2039 Infant Weight (lb): 4 Infant Weight (oz): 8 Infant Length (in): 17.00 Infant Length (cm): 43.18 CORD INFORMATION BABY A No. Cord Vessels: 3 Nuchal Cord : N/A Cord Blood Taken: Yes-For Storage (Mom's Blood type +) (Annotations: Data stored by [facility] on behalf of user) Suction: Mouth; Nose ASSESSMENT BABY A Complications: None Physical Findings at Delivery: Within Normal Limits Infant Respirations: Tachypnea Skin to Skin: Yes Skin to Skin Time (min): 30 Finish Mixer/ALS Called : No Infant Care By: Josselyn Lozano RN Transferred To: Remains with Mother BABY B INFORMATION : N/A SIGNATURES Signature: with User ID: [email or web address]
[2018-06-13] MEDS: FAMOTIDINE 20 MG TABLET PO SCH (09:18)
[2018-06-13] MEDS: PRENATAL VITAMIN W DHA CAPSULE PO SCH (09:18)
[2018-06-13] MEDS: DOCUSATE SODIUM 100 MG CAPSULE PO SCH ×2 (09:18→18:40)
[2018-06-13 09:20] LABS: CHLAM PCR NOT DETECTED (NOT DETECT); GON PCR NOT DETECTED (NOT DETECT)
[2018-06-13] MEDS: METHADONE HCL 10 MG TABLET PO SCH (09:20)
[2018-06-13] MEDS: FERROUS SULFATE 325 MG TABLET PO SCH ×2 (09:20→18:40)
[2018-06-13] MEDS: SENNOSIDES/DOCUSATE 8.6-50 MG 1 EACH TABLET PO SCH (09:21)
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
[2018-06-13] MEDS: DIPHENHYDRAMINE HCL 25 MG CAPSULE PO PRN (13:50)
[2018-06-14] MEDS: ACETAMINOPHEN WITH CODEINE #3 TABLET PO PRN ×3 (01:00→09:42)
[2018-06-14] MEDS: DIPHENHYDRAMINE HCL 25 MG CAPSULE PO PRN ×2 (01:02→09:41)
[2018-06-14] MEDS: FAMOTIDINE 20 MG TABLET PO SCH ×2 (01:03→09:41)
--- NOTE | 2018-06-14 08:36 | PDOC PROGRESS REPORT ---
Addendum entered and electronically signed by JENNIFER DE LAR OSA CNM 06/14/18 08:53: Physical Exam (OB) Vital Signs: Temp Pulse Resp BP Pulse Ox 98.0 F 81 18 120/83 99 06/13/18 08:29 06/13/18 19:59 06/13/18 19:59 06/13/18 19:59 06/13/18 19:59 Intake & Output 06/13/18 06/14/18 06/15/18 06:59 06:59 06:59 Intake Total 700 Balance 700 Weight 89.3 kg - PIH/Pre-Eclampsia DTR's: 2 + Clonus: Negative Headache: Absent Epigastric Pain: No Visual Changes: No - Lochia Lochia Amount: Small 10-25 ml Lochia Color: Rubra/Red - Abdomen Description: Soft, Round Hernia Present: No Bowel Sounds: Normoactive Flatus Presence: Absent Stool: No Fundal Description: Firm Fundal Height: u/u - u/2 Original Note: Subjective-OB Progress Note for:: 06/14/18 Subjective: Ready for discharge. Physical Exam (OB) Vital Signs: Temp Pulse Resp BP Pulse Ox 98.0 F 81 18 120/83 99 06/13/18 08:29 06/13/18 19:59 06/13/18 19:59 06/13/18 19:59 06/13/18 19:59 Intake & Output 06/13/18 06/14/18 06/15/18 06:59 06:59 06:59 Intake Total 700 Balance 700 Weight 89.3 kg - PIH/Pre-Eclampsia DTR's: 2 + Clonus: Negative Headache: Absent Epigastric Pain: No Visual Changes: No - Lochia Lochia Amount: Small 10-25 ml Lochia Color: Rubra/Red - Abdomen Description: Soft, Round Hernia Present: No Bowel Sounds: Normoactive Flatus Presence: Present Stool: Yes Fundal Description: Firm Fundal Height: u/u - u/2 Objective-Diagnostic Laboratory: 06/13/18 07:58 06/13/18 06/13/18 07:58 07:58 WBC 12.4 H RBC 3.24 L Hgb 9.5 L Hct 28.0 L MCV 86 MCH 29.4 MCHC 34.1 RDW 13.7 Plt Count 259 Blood Type B NEGATIVE Assessment and Plan(PN) - Time Spent with Patient Smoking Education Provided: Over 3 minutes Medications reviewed and adjusted accordingly: Yes - Disposition Anticipated Discharge: Home
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
[2018-06-14 09:15] VITALS: BP 133/96
[2018-06-14] MEDS: DOCUSATE SODIUM 100 MG CAPSULE PO SCH (09:40)
[2018-06-14] MEDS: PRENATAL VITAMIN W DHA CAPSULE PO SCH (09:40)
[2018-06-14] MEDS: FERROUS SULFATE 325 MG TABLET PO SCH (09:41)
[2018-06-14] MEDS: SENNOSIDES/DOCUSATE 8.6-50 MG 1 EACH TABLET PO SCH (09:41)
[2018-06-14] MEDS: METHADONE HCL 10 MG TABLET PO SCH (09:43)
[2018-06-14] MEDS ORDERED: ARIPIPRAZOLE PO SCH (10:00)
[2018-06-14] MEDS ORDERED: BUSPIRONE HCL 10 MG TABLET PO SCH (10:00)
[2018-06-14] MEDS ORDERED: ARIPIPRAZOLE 5 MG TABLET PO SCH (10:00)
[2018-06-14] MEDS ORDERED: SERTRALINE HCL 50 MG TABLET PO SCH (10:00)
== END 2018-06-14 13:37 | disposition home or self-care (01) | DRG 805 ==
LOC: LC 08:55 → EEVIPCON 08:55 → LR 09:20 → 2S 20:02
PROVIDERS: ADMIT Obstetrics & Gynecology; ATTEND Obstetrics & Gynecology
PROC: 10E0XZZ Delivery of Products of Conception, External Approach (ICD-10-PCS; principal; 2018-06-12)
PROC: 3E0234Z Introduction of Serum, Toxoid and Vaccine into Muscle, Percutaneous Approach (ICD-10-PCS; 2018-06-13)
DX: O99.324 Drug use complicating childbirth (principal); O60.14X0 Preterm labor third trimester with preterm delivery third trimester, not applicable or unspecified; Z37.0 Single live birth; O98.52 Other viral diseases complicating childbirth; F11.20 Opioid dependence, uncomplicated; O62.3 Precipitate labor; O99.02 Anemia complicating childbirth; D64.9 Anemia, unspecified; O99.334 Smoking (tobacco) complicating childbirth; O26.893 Other specified pregnancy related conditions, third trimester; O42.913 Preterm premature rupture of membranes, unspecified as to length of time between rupture and onset of labor, third trimester; B00.9 Herpesviral infection, unspecified; F17.200 Nicotine dependence, unspecified, uncomplicated; O34.211 Maternal care for low transverse scar from previous cesarean delivery; Z86.19 Personal history of other infectious and parasitic diseases; Z3A.34 34 weeks gestation of pregnancy; Z79.899 Other long term (current) drug therapy; Z67.21 Type B blood, Rh negative; Z88.6 Allergy status to analgesic agent
CPT/HCPCS: 36415; 80307; 81001; 84112; 85025; 85027; 85461; 86592; 86695; 86850; 86870; 86900; 86901; 87491; 87591; 94760; 96372; J0702; J2540; J2550; J2590; J2790; J3490

== ENCOUNTER → 2018-08-05 | Outpatient (CLI) | payer MEDICAID ==
[2018-08-05 16:35] LABS: BACTERIA (WET MOUNT) 3+ BACTERIA SEEN; EPITHELIALS (WET MOUNT) 3+ EPITHELIALS SEEN; RBCS (WET MOUNT) RARE RBCS SEEN; T.VAGINALIS (WET MOUNT) NO TRICHOMONAS SEEN; WBCS (WET MOUNT) 1+ WBCS SEEN; YEAST (WET MOUNT) NO YEAST SEEN
[2018-08-05 18:06] LABS: CHLAM PCR NOT DETECTED (NOT DETECT)
== END ==
LOC: LAB 16:23
PROVIDERS: ATTEND Nurse Practitioner Acute Care
DX: N89.8 Other specified noninflammatory disorders of vagina (principal)
CPT/HCPCS: 87210; 87491; 87591

== ENCOUNTER 2019-05-28 17:05 | Emergency (ER) | payer SELFPAY ==
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
[2019-05-29 06:55] VITALS: BP 138/66
== END 2019-05-28 17:30 | disposition other institution (70) ==
LOC: ER 17:05
DX: O26.899 Other specified pregnancy related conditions, unspecified trimester (principal); R05 Cough; Z3A.00 Weeks of gestation of pregnancy not specified; O99.519 Diseases of the respiratory system complicating pregnancy, unspecified trimester; J45.909 Unspecified asthma, uncomplicated
CPT/HCPCS: 99284

== ENCOUNTER 2019-05-28 17:55 | Outpatient (CLI) | payer SELFPAY ==
[2019-05-28 19:06] LABS: T.VAGINALIS (WET MOUNT) NO TRICHOMONAS SEEN
[2019-05-28 19:07] LABS: EPITHELIALS (WET MOUNT) 4+ EPITHELIALS SEEN; WBCS (WET MOUNT) 2+ WBCS SEEN; YEAST (WET MOUNT) BUDDING YEAST SEEN
[2019-05-28 19:09] LABS: ABSOLUTE BASOPHILS # (AUTO) 0.1 10^3/uL (0.0-0.2); ABSOLUTE EOSINOPHILS # (AUTO) 0.1 10^3/uL (0.0-0.6); ABSOLUTE MONOCYTES (AUTO) 0.5 10^3/uL (0.1-1.4); ABSOLUTE NEUT (AUTO) 6.2 10^3/uL (1.7-8.2); BASOPHILS % (AUTO) 0.7 % (0-2); HEMOGLOBIN 11.2 g/dL (12.0-15.5); LYMPHOCYTES % (AUTO) 30.5 % (13-45); MEAN CORPUSCULAR HEMOGLOBIN 29.3 pg (27.0-33.4); MEAN CORPUSCULAR VOLUME 84 fl (80-97); MONOCYTES % (AUTO) 4.6 % (3-13); RED BLOOD COUNT 3.83 10^6/uL (3.72-5.28); RED CELL DISTRIBUTION WIDTH 16.5 % (11.5-14.0); SEGMENTED NEUTROPHILS % (AUTO) 63.2 % (42-78); TOTAL CELLS COUNTED % (AUTO) 100 %; WHITE BLOOD COUNT 9.9 10^3/uL (4.0-10.5)
--- NOTE | 2019-05-28 19:18 | RADIOLOGY REPORT (SQ) ---
EXAM DESCRIPTION: U/S OB LIMITED IMAGES COMPLETED DATE/TIME: 05/28/2019 7:05 pm REASON FOR STUDY: no care COMPARISON: None. TECHNIQUE: Limited transabdominal grayscale ultrasound for evaluation of specific requested obstetri kesha parameters. LIMITATIONS: Patient declined transvaginal evaluation. FINDINGS: CERVICAL LENGTH: 2.7 cm closed. JONO: 12.2 cm. Largest vertical pocket 6.1 x 5.0 cm. FHR: 147 beats per minute. PRESENTATION: Breech. PLACENTA: Posterior without evidence of abruption. ANATOMY: Incompletely assessed. Stomach, kidneys, four-chamber heart and bladder all look rela tively unremarkable on non dedicated evaluation. OTHER: Estimated weight 1212 g. Estimated gestational age 28 week 0 day. This is significantly different from reported clinical age of 37 weeks 3 days. EDC based on today's ultrasound is 08/20/2019. IMPRESSION: LIMITED OBSTETRICAL ULTRASOUND WITH MEASURED PARAMETERS DELINEATED ABOVE. Trimester of : Third trimester - 28 weeks to delivery. TECHNICAL DOCUMENTATION: JOB ID: [id number] [employer]- All Rights Reserved Reading location - IP/workstation name: [email or web address]
[2019-05-28 19:28] LABS: PLATELET COUNT 376 10^3/uL (150-450)
[2019-05-28] MEDS ORDERED: FLUCONAZOLE 100 MG TABLET ONE (19:39)
[2019-05-28 19:50] LABS: URINE BARBITURATES SCREEN NEGATIVE; URINE BENZODIAZEPINES SCREEN NEGATIVE; URINE COCAINE SCREEN NEGATIVE; URINE METHADONE SCREEN NEGATIVE; URINE PHENCYCLIDINE SCREEN NEGATIVE
[2019-05-28 20:02] LABS: URINE MARIJUANA (THC) SCREEN UNCONFIRMED POSITIVE
[2019-05-28] MEDS ORDERED: DIPH/PERTUSS(ACELL)/TETANUS VAC/PF 0.5 ML SYR (>=10YO) IM ONE (20:11)
[2019-05-28 20:13] LABS: APPEARANCE,URINE SLIGHTLY-CLOUDY; BILIRUBIN,URINE NEGATIVE (NEGATIVE); COLOR,URINE AMBER; GLUCOSE, URINE NEGATIVE (NEGATIVE); KETONES,URINE NEGATIVE (NEGATIVE); LEUKOCYTE ESTERASE,URINE TRACE (NEGATIVE); NITRITE,URINE POSITIVE (NEGATIVE); PROTEIN,URINE 30 mg/dL (NEGATIVE); URINE SPECIFIC GRAVITY 1.021
[2019-05-28] MEDS ORDERED: BENZONATATE 100 MG CAPSULE PO ONE (20:18)
[2019-05-28] MEDS ORDERED: CEFTRIAXONE INJ 1000 MG VIAL ONE (20:21)
[2019-05-28 20:40] LABS: CHLAM PCR DETECTED (NOT DETECT)
[2019-05-28] MEDS ORDERED: ONDANSETRON HCL INJ/PF 4 MG/2 ML SDV ONE (20:49)
[2019-05-28] MEDS ORDERED: ONDANSETRON HCL INJ/PF 4 MG/2 ML SDV IV ONE (20:58)
[2019-05-28] MEDS ORDERED: CEFTRIAXONE 2 GM/D5W RTU 2 GM/50 ML RTUPB IV SCH ×2 (21:00)
== END 2019-05-28 22:04 | disposition home or self-care (01) ==
LOC: LC 17:55
PROVIDERS: ATTEND Obstetrics & Gynecology
DX: Z34.92 Encounter for supervision of normal pregnancy, unspecified, second trimester (principal)
CPT/HCPCS: 86900; 86901; 36415; 87210; 86850; 85025; 86762; 86592; 81001; 87081; 87522; 87340; 86787; 86701; 80307 ×2; 87491; 87591; 80361; 84112; 76815; 59899; J2790; G0480 ×3; J0696; J2405; 80349; 87077; 87086; 87088